=== PATIENT | female | born 1945 | race African-American/Black ===

== ENCOUNTER 2016-11-17 13:15 | Emergency (ER) | payer OTHER, MEDICARE ==
[2016-11-17 13:25] VITALS: BP 125/64
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
[2016-11-17] MEDS ORDERED: TRAMADOL HCL 50 MG TABLET PO ONE (14:37)
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
== END 2016-11-17 16:43 | disposition home or self-care (01) ==
LOC: ER 13:15
DX: S16.1XXA Strain of muscle, fascia and tendon at neck level, initial encounter (principal); S39.012A Strain of muscle, fascia and tendon of lower back, initial encounter; M54.9 Dorsalgia, unspecified; V87.7XXA Person injured in collision between other specified motor vehicles (traffic), initial encounter; M54.2 Cervicalgia; M54.5 Low back pain; M25.519 Pain in unspecified shoulder
CPT/HCPCS: 72110; 99283

== ENCOUNTER → 2017-06-16 | Outpatient (CLI) | payer MEDICARE, OTHER ==
--- NOTE | 2017-06-16 17:42 | WOMENS IMAGING REPORT ---
EXAM DESCRIPTION: 3D SCREENING MAMMO BILAT COMPLETED DATE/TIME: 06/16/2017 2:35 pm REASON FOR STUDY: SCREENING MAMMO Z12.31 ENCNTR SCREEN MAMMOGRAM FOR MALIGNANT NEOPLASM OF MIRIAM COMPARISON: Multiple since 2008 TECHNIQUE: Standard craniocaudal and mediolateral oblique views of each breast recorded using digita l acquisition and breast tomosynthesis. LIMITATIONS: None. FINDINGS: Findings present which are benign by mammographic criteria. No suspicious masses, calcifi cations or architectural distortion. Pertinent benign findings: Benign bilateral breast parenchymal calcifications. Read with the assistance of CAD. .[facility] - R2 Cenova Version 1.3 .[facility] - R2 Cenova Version 1.3 .[facility] - R2 Cenova Version 2.4 .[facility] [place] R2 Cenova Version 2.4 .[facility] - R2 [employer] Version 9.2 Benign mammographic findings may include one or more of the following: Smooth masses, popcorn/rim/co arse calcifications, asymmetries, post-procedure changes, and lesions with long-standing stability. IMPRESSION: BENIGN MAMMOGRAPHIC FINDINGS. BIRADS 2 BREAST DENSITY: b. There are scattered areas of fibroglandular density. BIRAD: 2 BENIGN FINDING(S) RECOMMENDATION: RECOMMENDATION: ROUTINE SCREENING Please continue yearly bilateral screening tomosynthesis in May 2018 COMMENT: The patient has been notified of the results by letter per SA requirements. Additional no tification policies are in place for contacting patient with suspicious or incomplete findings. Quality ID #[id number]: The [employer] recommends an annual screening mammogram for women aged 40 years or over. This facility utilizes a reminder system to ensure that all patients receive reminder letters, and/or direct phone calls for appointments. This includes reminders for routine scr eening mammograms, diagnostic mammograms, or other Breast Imaging Interventions when appropriate. Th is patient will be placed in the appropriate reminder system. The [employer] (ACR) has developed recommendations for screening MRI of the breast s in certain patient populations, to be used in conjunction with mammography. Breast MRI surveillanc e may be appropriate for women with more than 20% lifetime risk of developing breast cancer as deter mined by genetic testing, significant family history of the disease, or history of mantle radiation f or Hodgkins Disease. ACR Practice Guidelines 2008. DBT Technology DBT is a type of tomographic mammography. With conventional mammography, overlapping breast tissue ma y make lesions difficult to detect, even with good compression. DBT uses an x-ray tube that rotates a round the breast, taking images at different angles. These images are then combined to create thin sl ices of the breast that the radiologist can view as a 3D reconstruction. The [employer] unit can perform full-field digital mammograms (2D imaging); or DBT (3D imaging); or both, in a combination mode that quickly performs both the mammogram and the tomosynthesis scan while the breast is still compressed. PQRS 6045F: Fluoroscopic imaging is not utilized for breast tomosynthesis. TECHNICAL DOCUMENTATION: FINDING NUMBER: (1) ASSESSMENT: (1) JOB ID: [id number] [employer]- All Rights Reserved
== END ==
LOC: WI 14:16
PROVIDERS: ATTEND Obstetrics & Gynecology Gynecology
DX: Z12.31 Encounter for screening mammogram for malignant neoplasm of breast (principal)
CPT/HCPCS: 77063; G0202; 77067

== ENCOUNTER 2017-08-03 12:10 | Inpatient (IN) | payer MEDICARE, OTHER ==
[2017-08-03] MEDS ORDERED: INFLUENZA ADLT QUAD (36MOS+) 2017-18 VAC 0.5 ML SYR IM PRN (13:45)
[2017-08-03 14:40] LABS: ABSOLUTE BASOPHILS # (AUTO) 0.1 10^3/uL (0.0-0.2); ABSOLUTE EOSINOPHILS # (AUTO) 0.1 10^3/uL (0.0-0.6); ABSOLUTE LYMPHOCYTES (AUTO) 2.5 10^3/uL (0.5-4.7); ABSOLUTE MONOCYTES (AUTO) 0.5 10^3/uL (0.1-1.4); BASOPHILS % (AUTO) 1.3 % (0-2); EOSINOPHILS % (AUTO) 1.8 % (0-6); HEMATOCRIT 20.5 % (36.0-47.0); HGB HCT DIFFERENCE -1.3; LYMPHOCYTES % (AUTO) 48.8 % (13-45); MEAN CORPUSCULAR VOLUME 65 fl (80-97); MONOCYTES % (AUTO) 10.6 % (3-13); RED BLOOD COUNT 3.18 10^6/uL (3.72-5.28); RED CELL DISTRIBUTION WIDTH 18.1 % (11.5-14.0); SEGMENTED NEUTROPHILS % (AUTO) 37.5 % (42-78); WHITE BLOOD COUNT 5.2 10^3/uL (4.0-10.5)
[2017-08-03 14:51] LABS: ANION GAP 11 (5-19); BLOOD UREA NITROGEN 18 mg/dL (7-20); CALCIUM 9.5 mg/dL (8.4-10.2); CARBON DIOXIDE 25 mmol/L (22-30); CHLORIDE 107 mmol/L (98-107); CREATININE RESULT 0.95 mg/dL (0.52-1.25); GLUCOSE 76 mg/dL (75-110); POTASSIUM 4.5 mmol/L (3.6-5.0); SODIUM 143.4 mmol/L (137-145)
[2017-08-03 15:16] LABS: ANISOCYTOSIS 2+; HYPOCHROMASIA 2+; MICROCYTOSIS 3+; OVALOCYTES 2+; POIKILOCYTOSIS 3+; POLYCHROMASIA SLIGHT; SCHISTOCYTES 1+
--- NOTE | 2017-08-03 15:22 | PDOC H&P ---
History of Present Illness Admission Date/PCP: 08/03/17 12:10 JAD FLORES MD History of Present Illness: FLORENCE COON is a 71 year old female, she came to the office yesterday for evaluation of lightheadedness, fatigue, feeling of exhaustion, shortness of breath. She was evaluated in the office, blood was drawn for hemogram and metabolic panel. The results of the hemogram came back today it revealed hemoglobin of 5.6. She denies passage of black tarry stool, there is no vomiting, there is no hematochezia. She had a similar presentation last year, at that time she was admitted for blood transfusion and she underwent EGD and colonoscopy. The EGD showed gastritis and internal hemorrhoids. The histopathology of the stomach biopsy was consistent with chronic inactive gastritis, the histopathology of the colonic biopsy was consistent with nonspecific gastritis but no microscopic colitis no malignancy was found. She was called from home today to be admitted directly to the hospital for blood transfusion and also to be seen by GI for evaluation and possibly EGD and colonoscopy I suspect she may have angiodysplasia. Past Medical History Cardiac Medical History: Reports: Hypertension Pulmonary Medical History: Reports: Bronchitis Endocrine Medical History: Reports: Diabetes Mellitus Type 2, Hypothyroidism GI Medical History: Reports: Gastroesophageal Reflux Disease Psychiatric Medical History: Reports: Depression Hematology: Reports: Anemia Infectious Medical History: Denies: HIV Past Surgical History Past Surgical History: Reports: Appendectomy, Hysterectomy, Orthopedic Surgery, Tonsillectomy Social History Smoking Status: Never Smoker Frequency of Alcohol Use: Occasional Hx Recreational Drug Use: No Drugs: None Hx Prescription Drug Abuse: No Family History Family History: Reviewed & Not Pertinent Parental Family History Reviewed: Yes Children Family History Reviewed: Yes Sibling(s) Family History Reviewed.: Yes Medication/Allergy Home Medications: Clonidine HCl [Catapres 0.1 mg Tablet] 0.1 mg PO DAILY 06/27/12 Levothyroxine Sodium [Synthroid] 137 mcg PO DAILY 06/27/12 Verapamil HCl [Isoptin Sr] 240 mg PO DAILY 06/27/12 Hyoscyamine 0.125 mg PO BID 09/01/12 Aspirin [Aspirin EC] 81 mg PO DAILY PRN 01/25/16 Clonazepam [Klonopin] 1 mg PO PRN PRN 01/25/16 Ezetimibe [Zetia 10 mg Tablet] 1 tab PO DAILY 01/25/16 Linagliptin [Tradjenta] 5 mg PO DAILY 01/25/16 Rabeprazole Sodium [Aciphex] 20 mg PO DAILY 01/25/16 Valsartan/Hydrochlorothiazide [Diovan Hct 160-12.5 mg Tab] 1 each PO BID Cyclobenzaprine HCl [Flexeril 5 mg Tablet] 5 mg PO TID PRN #15 tablet 11/17/16 Tramadol HCl 50 mg PO Q4 PRN #20 tablet 11/17/16 Allergies/Adverse Reactions: clindamycin Allergy (Verified 11/17/16 13:32) Sulfa (Sulfonamide Antibiotics) Allergy (Verified 11/17/16 13:32) Review of Systems Constitutional: PRESENT: fatigue, weakness Eyes: ABSENT: visual disturbances Ears: ABSENT: hearing changes Cardiovascular: PRESENT: dyspnea on exertion Respiratory: ABSENT: cough, hemoptysis Gastrointestinal: ABSENT: abdominal pain, constipation, diarrhea, hematemesis, hematochezia, nausea, vomiting Genitourinary: ABSENT: dysuria, hematuria Musculoskeletal: ABSENT: joint swelling Integumentary: ABSENT: rash, wounds Neurological: ABSENT: abnormal gait, abnormal speech, confusion, dizziness, focal weakness, syncope Psychiatric: ABSENT: anxiety, depression, homidical ideation, suicidal ideation Endocrine: ABSENT: cold intolerance, heat intolerance, menstrual abnormalities, polydipsia, polyuria Hematologic/Lymphatic: ABSENT: easy bleeding, easy bruising, lymphadenopathy Physical Exam Vital Signs: Temp Pulse Resp BP Pulse Ox 98.3 F 67 20 129/63 H 99 08/03/17 12:55 08/03/17 12:55 08/03/17 12:55 08/03/17 12:55 08/03/17 12:55 Intake & Output 08/02/17 08/03/17 08/04/17 06:59 06:59 06:59 Weight 70.1 kg General appearance: PRESENT: no acute distress, well-developed, well-nourished Head exam: PRESENT: atraumatic, normocephalic Eye exam: PRESENT: conjunctiva pale, PERRLA Mouth exam: PRESENT: moist, tongue midline Neck exam: PRESENT: full ROM Respiratory exam: PRESENT: clear to auscultation carmelo Cardiovascular exam: PRESENT: RRR, +S1, +S2 Vascular exam: PRESENT: normal capillary refill GI/Abdominal exam: PRESENT: normal bowel sounds, soft Rectal exam: PRESENT: deferred Neurological exam: PRESENT: alert, awake, oriented to person, oriented to place , oriented to time, oriented to situation, CN II-XII grossly intact Psychiatric exam: PRESENT: appropriate affect, normal mood Skin exam: PRESENT: dry, intact, warm Results Laboratory Results: 08/03/17 14:10 Iron 12.1 L TIBC 468 H % Saturation 3 Assessment & Plan - Diagnosis (1) Iron deficiency anemia due to chronic blood loss Is this a current diagnosis for this admission?: Yes Plan: She is admitted for the management of severe iron deficiency anemia, she be transfused with packed red blood cells, GI consultation will be requested for endoscopy (2) Type 2 diabetes mellitus Qualifiers: Diabetes mellitus complication status: without complication Diabetes mellitus senior care insulin use: without oil heaterman use Qualified Code(s): E11.9 - Type 2 diabetes mellitus without complications Is this a current diagnosis for this admission?: Yes
[2017-08-03 15:32] LABS: FERRITIN 5.95 ng/mL (11.1-264.0)
[2017-08-03 15:36] LABS: HEMOGLOBIN 6.4 g/dL (12.0-15.5)
[2017-08-03 16:02] LABS: FOLATE > 20.00 ng/mL (>2.76)
--- NOTE | 2017-08-03 16:02 | RADIOLOGY REPORT (SQ) ---
EXAM DESCRIPTION: CHEST PA/LAT COMPLETED DATE/TIME: 08/03/2017 3:21 pm REASON FOR STUDY: SEVERE ANEMIA COMPARISON: 03/29/2015, 06/28/2012 EXAM PARAMETERS: NUMBER OF VIEWS: two views TECHNIQUE: Digital Frontal and Lateral radiographic views of the chest acquired. RADIATION DOSE: NA LIMITATIONS: none FINDINGS: LUNGS AND PLEURA: No opacities, masses or pneumothorax. No pleural effusion. MEDIASTINUM AND HILAR STRUCTURES: No masses or contour abnormalities. HEART AND VASCULAR STRUCTURES: Stable mild cardiomegaly. No evidence for failure. BONES: Osteopenic. No acute findings. HARDWARE: None in the chest. OTHER: No other significant finding. IMPRESSION: Mild cardiomegaly. Otherwise unremarkable study TECHNICAL DOCUMENTATION: JOB ID: [id number] [employer]- All Rights Reserved
--- NOTE | 2017-08-03 17:08 | PDOC CONSULTATION ---
Consultation Consult Date: 08/03/17 Attending physician:: WING NEUMANN Consult reason:: Severe anemia with symptoms. needs GI evaluation History of Present Illness Admission Date/PCP: 08/03/17 12:10 JAD FLORES MD History of Present Illness: Asked to see patient by Dr Carreonoh was admitted with profuund anemia of unclear etiology patient states had been feeling more fatigued than usual and had several close syncopal episodes patient state no rectal bleeding no nausea or vomiting no dysphagia or odynophagia patient says no melena denies any weight loss no family history of any colon malignancy admitted for start of work up and blood transfusion spoke with patient she seems willing to proceed she will need colonoscopy and EGD she denies any profuse vaginal bleeding or hematuria Past Medical History Cardiac Medical History: Reports: Hypertension Pulmonary Medical History: Reports: Bronchitis Endocrine Medical History: Reports: Diabetes Mellitus Type 2, Hypothyroidism GI Medical History: Reports: Gastroesophageal Reflux Disease Psychiatric Medical History: Reports: Depression Denies: Bipolar Disorder, Post Traumatic Stress Disorder Hematology: Reports: Anemia Denies: Hemophilia, Sickle Cell Disease Infectious Medical History: Denies: HIV Past Surgical History Past Surgical History: Reports: Appendectomy, Hysterectomy, Orthopedic Surgery, Tonsillectomy Denies: Amputation, Section, Cholecystectomy, Colostomy, Coronary Artery Bypass Graft, Gastric Bypass Surgery, Herniorrhaphy, Mastectomy, Pacemaker, Tubal Ligation Social History Smoking Status: Never Smoker Frequency of Alcohol Use: Occasional Hx Recreational Drug Use: No Drugs: None Hx Prescription Drug Abuse: No Family History Family History: Reviewed & Not Pertinent Parental Family History Reviewed: Yes Children Family History Reviewed: Unknown Sibling(s) Family History Reviewed.: Unknown Medication/Allergy Home Medications: Aspirin [Aspirin EC] 81 mg PO DAILY 08/03/17 Clonazepam [Klonopin 1 mg Tablet] 1 mg PO DAILY 08/03/17 Clonidine HCl [Catapres 0.1 mg Tablet] 0.1 mg PO DAILY 08/03/17 Levothyroxine Sodium [Synthroid] 137 mcg PO DAILY 08/03/17 Linagliptin [Tradjenta] 5 mg PO DAILY 08/03/17 Rabeprazole Sodium [Aciphex] 20 mg PO DAILY 08/03/17 Valsartan/Hydrochlorothiazide [Valsartan-Hctz 160-12.5 mg Tab] 1 tab PO DAILY Verapamil HCl [Verapamil ER] 240 mg PO DAILY 08/03/17 Allergies/Adverse Reactions: clindamycin Allergy (Verified 11/17/16 13:32) Sulfa (Sulfonamide Antibiotics) Allergy (Verified 11/17/16 13:32) Review of Systems Constitutional: PRESENT: weakness. ABSENT: fever(s), headache(s), night sweats Eyes: ABSENT: visual disturbances Nose, Mouth, and Throat: ABSENT: mouth pain, sore throat Cardiovascular: ABSENT: chest pain, edema, orthropnea, palpitations Respiratory: ABSENT: dyspnea, hemoptysis Gastrointestinal: ABSENT: diarrhea, dysphagia, melena, nausea, vomiting Genitourinary: ABSENT: dysuria Musculoskeletal: ABSENT: muscle weakness Integumentary: ABSENT: lesions, pruritus Neurological: ABSENT: syncope, tingling, tremor(s), vertigo Endocrine: ABSENT: polydipsia, polyphagia, polyuria Hematologic/Lymphatic: ABSENT: easy bruising Physical Exam Vital Signs: Temp Pulse Resp BP Pulse Ox 98.3 F 69 20 129/63 H 99 08/03/17 12:55 08/03/17 13:36 08/03/17 12:55 08/03/17 12:55 08/03/17 12:55 Intake & Output 08/02/17 08/03/17 08/04/17 06:59 06:59 06:59 Weight 70.1 kg General appearance: PRESENT: no acute distress, well-developed, well-nourished Head exam: PRESENT: atraumatic, normocephalic Eye exam: PRESENT: EOMI, PERRLA. ABSENT: nystagmus, periorbital swelling, scleral icterus Mouth exam: PRESENT: moist, neck supple Throat exam: ABSENT: tonsillar exudate, tonsillogmegaly Neck exam: ABSENT: meningismus, tenderness, thyromegaly Respiratory exam: PRESENT: symmetrical, unlabored. ABSENT: tachypnea, wheezes Cardiovascular exam: PRESENT: RRR, +S1, +S2 GI/Abdominal exam: PRESENT: soft. ABSENT: rebound, rigid, tenderness Extremities exam: ABSENT: joint swelling Musculoskeletal exam: PRESENT: full ROM Neurological exam: PRESENT: oriented to time, oriented to situation, CN II-XII grossly intact Psychiatric exam: PRESENT: appropriate affect Skin exam: PRESENT: normal color. ABSENT: mottled, pallor, petechiae, urticaria , vesicles Results Laboratory Results: 08/03/17 14:10 08/03/17 14:10 08/03/17 08/03/17 08/03/17 14:10 14:10 14:10 WBC 5.2 RBC 3.18 L Hgb 6.4 L Hct 20.5 L MCV 65 L MCH 20.0 L MCHC 31.0 L RDW 18.1 H Plt Count 320 Seg Neutrophils % 37.5 L Lymphocytes % 48.8 H Monocytes % 10.6 Eosinophils % 1.8 Basophils % 1.3 Absolute Neutrophils 2.0 Absolute Lymphocytes 2.5 Absolute Monocytes 0.5 Absolute Eosinophils 0.1 Absolute Basophils 0.1 Sodium Potassium Chloride Carbon Dioxide Anion Gap BUN Creatinine Est GFR ( Amer) Est GFR (Non-Af Amer) Glucose Calcium Iron 12.1 L TIBC 468 H % Saturation 3 Ferritin Vitamin B12 Folate Blood Type O POSITIVE Antibody Screen NEGATIVE 08/03/17 14:10 WBC RBC Hgb Hct MCV MCH MCHC RDW Plt Count Seg Neutrophils % Lymphocytes % Monocytes % Eosinophils % Basophils % Absolute Neutrophils Absolute Lymphocytes Absolute Monocytes Absolute Eosinophils Absolute Basophils Sodium 143.4 Potassium 4.5 Chloride 107 Carbon Dioxide 25 Anion Gap 11 BUN 18 Creatinine 0.95 Est GFR ( Amer) > 60 Est GFR (Non-Af Amer) 58 L Glucose 76 Calcium 9.5 Iron TIBC % Saturation Ferritin 5.95 L Vitamin B12 291.0 Folate > 20.00 Blood Type Antibody Screen Impressions: Chest X-Ray 08/03/17 00:00 IMPRESSION: Mild cardiomegaly. Otherwise unremarkable study Assessment & Plan - Diagnosis (1) GERD (gastroesophageal reflux disease) Plan: will need to have EGD done rule out for possible peptic ulcer disease Risks, benefits and alternatives are discussed with the patient in detail further recommendations to follow (2) Iron deficiency anemia due to chronic blood loss Is this a current diagnosis for this admission?: Yes Plan: will need to exclude possible blood loss she is willing to proceed with the GI work up as planned Risks, benefit and alternatives are discussed further recommendations to follow - Time Time Spent: 50 to 70 Minutes
[2017-08-03] MEDS ORDERED: PEG 3350/NA SULF,BICARB,CL/KCL 4000 ML PO PRN (18:01)
[2017-08-03] MEDS ORDERED: (PENDING PHARMACY ID) (Valsartan/Hydrochlorothiazide [Valsartan-Hctz 160-12.5 Mg Tab] 1 TA PO SCH (20:45)
[2017-08-03] MEDS ORDERED: (PENDING PHARMACY ID) (Linagliptin [Tradjenta] 5 MG) PO SCH (20:45)
[2017-08-03] MEDS ORDERED: (PENDING PHARMACY ID) (Rabeprazole Sodium [Aciphex] 20 MG) PO SCH (20:45)
[2017-08-03] MEDS ORDERED: (PENDING PHARMACY ID) (Levothyroxine Sodium [Synthroid] 137 MCG) PO SCH (20:45)
[2017-08-03] MEDS ORDERED: CLONIDINE HCL 0.1 MG TABLET PO ONE (21:00)
[2017-08-03] MEDS: CLONAZEPAM 1 MG TABLET PO SCH (21:13)
[2017-08-03] MEDS: VERAPAMIL HCL 240 MG TABLET.SA PO SCH (21:19)
[2017-08-04 08:29] LABS: ABSOLUTE BASOPHILS # (AUTO) 0.1 10^3/uL (0.0-0.2); ABSOLUTE EOSINOPHILS # (AUTO) 0.2 10^3/uL (0.0-0.6); ABSOLUTE MONOCYTES (AUTO) 0.9 10^3/uL (0.1-1.4); ABSOLUTE NEUT (AUTO) 1.9 10^3/uL (1.7-8.2); BASOPHILS % (AUTO) 1.5 % (0-2); EOSINOPHILS % (AUTO) 4.3 % (0-6); HEMATOCRIT 34.5 % (36.0-47.0); HGB HCT DIFFERENCE -0.9; LYMPHOCYTES % (AUTO) 38.9 % (13-45); MEAN CORPUSCULAR HEMOGLOBIN 23.7 pg (27.0-33.4); MEAN CORPUSCULAR HGB CONC 32.4 g/dL (32.0-36.0); MONOCYTES % (AUTO) 17.6 % (3-13); RED BLOOD COUNT 4.71 10^6/uL (3.72-5.28); SEGMENTED NEUTROPHILS % (AUTO) 37.7 % (42-78); WHITE BLOOD COUNT 5.1 10^3/uL (4.0-10.5)
[2017-08-04 08:33] LABS: HEMOGLOBIN 11.2 g/dL (12.0-15.5); MEAN CORPUSCULAR VOLUME 73 fl (80-97)
[2017-08-04 08:39] LABS: ALANINE AMINOTRANSFERASE 32 U/L (9-52); ALKALINE PHOSPHATASE 78 U/L (38-126); ANION GAP 13 (5-19); ASPARTATE AMINO TRANSFERASE 46 U/L (14-36); BILIRUBIN,DIRECT 0.4 mg/dL (0.0-0.4); BILIRUBIN,TOTAL 0.8 mg/dL (0.2-1.3); BLOOD UREA NITROGEN 11 mg/dL (7-20); CALCIUM 9.4 mg/dL (8.4-10.2); CARBON DIOXIDE 24 mmol/L (22-30); CHLORIDE 109 mmol/L (98-107); CREATININE RESULT 0.83 mg/dL (0.52-1.25); GLUCOSE 84 mg/dL (75-110); POTASSIUM 4.5 mmol/L (3.6-5.0); SODIUM 145.8 mmol/L (137-145)
[2017-08-04 09:05] LABS: ANISOCYTOSIS 4+; HYPOCHROMASIA SLIGHT; MICROCYTOSIS 2+; OVALOCYTES 1+; POIKILOCYTOSIS 1+; POLYCHROMASIA SLIGHT
[2017-08-04] MEDS ORDERED: DIPHENHYDRAMINE HCL 50 MG/ML VIAL ONE (09:19)
[2017-08-04] MEDS ORDERED: ONDANSETRON HCL INJ/PF 4 MG/2 ML SDV ONE (09:19)
[2017-08-04] MEDS ORDERED: NALOXONE HCL INJ/PF 0.4 MG/1 ML SDV ONE (09:19)
[2017-08-04] MEDS ORDERED: FLUMAZENIL INJ 0.5 MG/5 ML VIAL ONE (09:20)
[2017-08-04] MEDS ORDERED: EPINEPHRINE INJ 1 MG/10 ML DISP.SYRIN ONE (09:20)
[2017-08-04] MEDS ORDERED: FENTANYL CITRATE INJ/PF 100 MCG/2 ML AMPUL ONE (09:20)
[2017-08-04] MEDS ORDERED: GLUCAGON,HUMAN RECOMB 1 MG INJ ONE (09:21)
[2017-08-04] MEDS ORDERED: LANSOPRAZOLE 30 MG TAB.RAP.DR PO SCH (10:00)
[2017-08-04] MEDS: MIDAZOLAM 2 MG/2 ML INJ ONE ×4 (11:18→11:34)
[2017-08-04] MEDS: FENTANYL CITRATE INJ/PF 100 MCG/2 ML AMPUL ONE ×3 (11:20→11:32)
--- NOTE | 2017-08-04 11:51 | Operative Report ---
Operative Report DATE OF SURGERY: 08/04/17 Operative Report: The risks, benefits and alternatives of the procedure including risks of bleeding, perforation requiring surgery are explained to the patient in detail and informed consent is obtained. The patient is brought back to the endoscopy suite and placed in the left, lateral decubital position. Timeout was called. Conscious sedation medications are provided. A rectal examination is done which did not reveal any masses, tears or fissures. An Olympus videoscope was inserted into the patient's rectum. The scope was then carefully advanced all the way to the cecum. Cecum was identified by the usual anatomical landmarks including the ileocecal valve as well as the appendiceal office. Photodocumentation is obtained. The scope was then sequentially pulled back via the various segments of the colon including the ascending colon, hepatic flexure, transverse colon, splenic flexure, descending colon finding to the rectosigmoid portions of the colon. Retroflexion maneuvers performed. The risks benefits and alternatives of the procedure explained to the patient in detail and informed consent is obtained.A GIF Olympus video scope was inserted into the patient's mouth and hypopharynx, the esophagus is identified intubated and insufflated, the scope was then advanced through the esophagus stomach and duodenum, retroflexion maneuver is done ,the esophagus stomach and first and second portions of the duodenum examined PREOPERATIVE DIAGNOSIS: Chronic anemia rule out GI bleed POSTOPERATIVE DIAGNOSIS: Right side mild inflammation status post biopsy noted in the right side of the colon. Gastritis status post biopsy rule out Helicobacter pylori. No bleeding lesions noted OPERATION: Colonoscopy with biopsy. EGD with biopsy SURGEON: WING NEUMANN ANESTHESIA: Moderate Sedation - 25 mg of Benadryl, 6 mg of Versed, 125 mcg of fentanyl. Conscious sedation monitoring time 30 minutes. TISSUE REMOVED OR ALTERED: As noted above. COMPLICATIONS: None. ESTIMATED BLOOD LOSS: None. INTRAOPERATIVE FINDINGS: As noted above. PROCEDURE: Patient tolerated procedure well. No immediate postprocedure complications are noted. Patient sent back to her room in good condition. Resume regular diet. Resume regular activity level. We will wait on pathology. No obvious bleeding is noted. Patient can be discharged after no other issues. Follow-up as outpatient.
[2017-08-04] MEDS: LEVOTHYROXINE SODIUM 0.025 MG TABLET PO SCH (12:25)
[2017-08-04] MEDS: LEVOTHYROXINE SODIUM 0.112 MG TABLET PO SCH (12:25)
[2017-08-04] MEDS ORDERED: IRON SUCROSE COMPLEX INJ/PF 100 MG/5 ML SDV IV ONE (12:53)
[2017-08-04] MEDS: SITAGLIPTIN PHOSPHATE 50 MG TABLET PO SCH (14:13)
[2017-08-04] MEDS: VALSARTAN 160 MG TABLET PO SCH (14:13)
[2017-08-04] MEDS: HYDROCHLOROTHIAZIDE 12.5 MG CAPSULE PO SCH (14:14)
[2017-08-04] MEDS: CLONIDINE HCL 0.1 MG TABLET PO SCH (14:14)
[2017-08-04] MEDS ORDERED: IRON SUCROSE COMPLEX 100 MG in NORMAL SALINE 100 ML IV ONE (14:30)
--- NOTE | 2017-08-04 18:22 | PDOC DISCHARGE SUMMARY ---
General - Admit/Disc Date/PCP Admission Date/Primary Care Provider: 08/03/17 12:10 JAD FLORES MD Discharge Date: 08/05/17 - Discharge Diagnosis (1) Acquired iron deficiency anemia due to decreased absorption Is this a current diagnosis for this admission?: Yes (2) Type 2 diabetes mellitus Is this a current diagnosis for this admission?: Yes - Additional Information Resuscitation Status: Full Code Home Medications: Aspirin [Aspirin EC] 81 mg PO DAILY 08/03/17 Clonazepam [Klonopin 1 mg Tablet] 1 mg PO DAILYP PRN 08/03/17 Clonidine HCl [Catapres 0.1 mg Tablet] 0.1 mg PO QHS 08/03/17 Levothyroxine Sodium [Synthroid] 137 mcg PO Q6AM 08/03/17 Linagliptin [Tradjenta] 5 mg PO DAILY 08/03/17 Rabeprazole Sodium [Aciphex] 20 mg PO Q6AM 08/03/17 Valsartan/Hydrochlorothiazide [Valsartan-Hctz 160-12.5 mg Tab] 1 tab PO DAILY@ 1600 08/03/17 Verapamil HCl [Verapamil ER] 240 mg PO DAILY 08/03/17 History of Present Illness History of Present Illness: FLORENCE COON is a 71 year old female, she came to the office yesterday for evaluation of lightheadedness, fatigue, feeling of exhaustion, shortness of breath. She was evaluated in the office, blood was drawn for hemogram and metabolic panel. The results of the hemogram came back today it revealed hemoglobin of 5.6. She denies passage of black tarry stool, there is no vomiting, there is no hematochezia. She had a similar presentation last year, at that time she was admitted for blood transfusion and she underwent EGD and colonoscopy. The EGD showed gastritis and internal hemorrhoids. The histopathology of the stomach biopsy was consistent with chronic inactive gastritis, the histopathology of the colonic biopsy was consistent with nonspecific gastritis but no microscopic colitis no malignancy was found. She was called from home today to be admitted directly to the hospital for blood transfusion and also to be seen by GI for evaluation and possibly EGD and colonoscopy I suspect she may have angiodysplasia. Hospital Course Hospital Course: Patient was admitted for the management of severe iron deficiency anemia, she was transfused with packed red blood cells, on admission the hemoglobin was 6.4 posttransfusion hemoglobin was 11.4 she was seen by GI Dr. Alvarenga she underwent EGD and colonoscopy, the colonoscopy showed right-sided mild inflammation biopsy was taken, the upper endoscopy showed gastritis there was no active bleeding lesions found. She has similar presentation last year suggesting that the iron deficiency is probably due to malabsorption of iron rather than iron loss from GI bleed she was also given IV Venofer. Physical Exam Vital Signs: Temp Pulse Resp BP Pulse Ox 97.7 F 62 16 159/73 H 97 08/04/17 16:02 08/04/17 16:02 08/04/17 16:02 08/04/17 16:02 08/04/17 16:02 Intake & Output 08/03/17 08/04/17 08/05/17 06:59 06:59 06:59 Intake Total 2795 656 Output Total 600 Balance 2195 656 Weight 70.1 kg General appearance: PRESENT: no acute distress, well-developed, well-nourished Head exam: PRESENT: atraumatic, normocephalic Eye exam: PRESENT: conjunctiva pink, EOMI, PERRLA Ear exam: PRESENT: normal external ear exam Mouth exam: PRESENT: moist, tongue midline Neck exam: PRESENT: full ROM Respiratory exam: PRESENT: clear to auscultation carmelo Cardiovascular exam: PRESENT: RRR, +S1, +S2 Pulses: PRESENT: normal dorsalis pedis pul, +2 pedal pulses bilateral Vascular exam: PRESENT: normal capillary refill GI/Abdominal exam: PRESENT: normal bowel sounds, soft Rectal exam: PRESENT: deferred Neurological exam: PRESENT: alert, awake, oriented to person, oriented to place , oriented to time, oriented to situation, CN II-XII grossly intact. ABSENT: motor sensory deficit Psychiatric exam: PRESENT: appropriate affect, normal mood Skin exam: PRESENT: dry, intact, warm Results Laboratory Results: 08/04/17 07:54 08/04/17 07:54 08/03/17 08/03/17 08/04/17 14:10 22:40 07:54 WBC 5.1 RBC 4.71 Hgb 11.2 L D Hct 34.5 L MCV 73 L D MCH 23.7 L MCHC 32.4 RDW 25.0 H Plt Count 279 Seg Neutrophils % 37.7 L Lymphocytes % 38.9 Monocytes % 17.6 H Eosinophils % 4.3 Basophils % 1.5 Absolute Neutrophils 1.9 Absolute Lymphocytes 2.0 Absolute Monocytes 0.9 Absolute Eosinophils 0.2 Absolute Basophils 0.1 Sodium Potassium Chloride Carbon Dioxide Anion Gap BUN Creatinine Est GFR ( Amer) Est GFR (Non-Af Amer) Glucose Calcium Total Bilirubin AST ALT Alkaline Phosphatase Total Protein Albumin Stool Occult Blood NEGATIVE Blood Type O POSITIVE Antibody Screen NEGATIVE 08/04/17 07:54 WBC RBC Hgb Hct MCV MCH MCHC RDW Plt Count Seg Neutrophils % Lymphocytes % Monocytes % Eosinophils % Basophils % Absolute Neutrophils Absolute Lymphocytes Absolute Monocytes Absolute Eosinophils Absolute Basophils Sodium 145.8 H Potassium 4.5 Chloride 109 H Carbon Dioxide 24 Anion Gap 13 BUN 11 Creatinine 0.83 Est GFR ( Amer) > 60 Est GFR (Non-Af Amer) > 60 Glucose 84 Calcium 9.4 Total Bilirubin 0.8 AST 46 H ALT 32 Alkaline Phosphatase 78 Total Protein 7.0 Albumin 4.0 Stool Occult Blood Blood Type Antibody Screen Impressions: Chest X-Ray 08/03/17 00:00 IMPRESSION: Mild cardiomegaly. Otherwise unremarkable study
--- NOTE | 2017-08-04 18:23 | PDOC PROGRESS REPORT ---
Subjective Progress Note for:: 08/04/17 Subjective:: She was seen by the bedside she had colonoscopy and upper endoscopy done today, there was no active bleeding lesion found on colonoscopy and upper endoscopy. She was given IV Venofer as well Physical Exam Vital Signs: Temp Pulse Resp BP Pulse Ox 97.7 F 62 16 159/73 H 97 08/04/17 16:02 08/04/17 16:02 08/04/17 16:02 08/04/17 16:02 08/04/17 16:02 Intake & Output 08/03/17 08/04/17 08/05/17 06:59 06:59 06:59 Intake Total 2795 656 Output Total 600 Balance 2195 656 Weight 70.1 kg General appearance: PRESENT: no acute distress, well-developed, well-nourished Head exam: PRESENT: atraumatic, normocephalic Eye exam: PRESENT: conjunctiva pink, EOMI, PERRLA. ABSENT: scleral icterus Ear exam: PRESENT: normal external ear exam Mouth exam: PRESENT: moist, tongue midline Neck exam: PRESENT: full ROM Respiratory exam: PRESENT: clear to auscultation carmelo Cardiovascular exam: PRESENT: RRR, +S1 Pulses: PRESENT: normal dorsalis pedis pul, +2 pedal pulses bilateral Vascular exam: PRESENT: normal capillary refill GI/Abdominal exam: PRESENT: normal bowel sounds, soft Rectal exam: PRESENT: deferred Neurological exam: PRESENT: alert, awake, oriented to person, oriented to place , oriented to time, oriented to situation, CN II-XII grossly intact. ABSENT: motor sensory deficit Psychiatric exam: PRESENT: appropriate affect, normal mood Skin exam: PRESENT: dry, intact, warm. ABSENT: cyanosis, rash Results Laboratory Results: 08/04/17 07:54 08/04/17 07:54 08/03/17 08/03/17 08/04/17 14:10 22:40 07:54 WBC 5.1 RBC 4.71 Hgb 11.2 L D Hct 34.5 L MCV 73 L D MCH 23.7 L MCHC 32.4 RDW 25.0 H Plt Count 279 Seg Neutrophils % 37.7 L Lymphocytes % 38.9 Monocytes % 17.6 H Eosinophils % 4.3 Basophils % 1.5 Absolute Neutrophils 1.9 Absolute Lymphocytes 2.0 Absolute Monocytes 0.9 Absolute Eosinophils 0.2 Absolute Basophils 0.1 Sodium Potassium Chloride Carbon Dioxide Anion Gap BUN Creatinine Est GFR ( Amer) Est GFR (Non-Af Amer) Glucose Calcium Total Bilirubin AST ALT Alkaline Phosphatase Total Protein Albumin Stool Occult Blood NEGATIVE Blood Type O POSITIVE Antibody Screen NEGATIVE 08/04/17 07:54 WBC RBC Hgb Hct MCV MCH MCHC RDW Plt Count Seg Neutrophils % Lymphocytes % Monocytes % Eosinophils % Basophils % Absolute Neutrophils Absolute Lymphocytes Absolute Monocytes Absolute Eosinophils Absolute Basophils Sodium 145.8 H Potassium 4.5 Chloride 109 H Carbon Dioxide 24 Anion Gap 13 BUN 11 Creatinine 0.83 Est GFR ( Amer) > 60 Est GFR (Non-Af Amer) > 60 Glucose 84 Calcium 9.4 Total Bilirubin 0.8 AST 46 H ALT 32 Alkaline Phosphatase 78 Total Protein 7.0 Albumin 4.0 Stool Occult Blood Blood Type Antibody Screen Impressions: Chest X-Ray 08/03/17 00:00 IMPRESSION: Mild cardiomegaly. 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
[2017-08-04] MEDS: VERAPAMIL HCL 240 MG TABLET.SA PO SCH (21:02)
[2017-08-04] MEDS: CLONAZEPAM 1 MG TABLET PO SCH (21:02)
[2017-08-05] MEDS ORDERED: LANSOPRAZOLE 30 MG TAB.RAP.DR PO SCH (06:00)
[2017-08-05] MEDS: LEVOTHYROXINE SODIUM 0.025 MG TABLET PO SCH (10:20)
[2017-08-05] MEDS: LEVOTHYROXINE SODIUM 0.112 MG TABLET PO SCH (10:23)
[2017-08-05] MEDS: HYDROCHLOROTHIAZIDE 12.5 MG CAPSULE PO SCH (10:23)
[2017-08-05] MEDS: SITAGLIPTIN PHOSPHATE 50 MG TABLET PO SCH (10:23)
[2017-08-05] MEDS: CLONIDINE HCL 0.1 MG TABLET PO SCH (10:23)
[2017-08-05] MEDS: VALSARTAN 160 MG TABLET PO SCH (10:24)
--- NOTE | 2017-08-05 12:07 | PDOC PROGRESS REPORT ---
Subjective Progress Note for:: 08/05/17 Subjective:: Patient tolerated procedure well. In future she is probably not a candidate for conscious sedation and will need propofol anesthesia. Biopsies are returned, they are negative. No evidence of GI bleeding is noted. No colon polyps were noted. She does have chronic anemia. Further workup should continue with hematology. She resume her previous diet. No postprocedure complications are noted She denies any abdominal pain fevers or chills. Physical Exam Vital Signs: Temp Pulse Resp BP Pulse Ox 97.9 F 56 L 16 145/54 H 95 08/04/17 23:40 08/05/17 07:00 08/04/17 23:40 08/04/17 23:40 08/04/17 23:40 Intake & Output 08/04/17 08/05/17 08/06/17 06:59 06:59 06:59 Intake Total 2795 1976 Output Total 600 550 Balance 2195 1426 Weight 70.1 kg General appearance: PRESENT: no acute distress, well-developed, well-nourished Head exam: PRESENT: atraumatic, normocephalic Eye exam: PRESENT: EOMI, PERRLA. ABSENT: nystagmus, periorbital swelling, scleral icterus Mouth exam: PRESENT: moist, neck supple Throat exam: ABSENT: tonsillar exudate, tonsillogmegaly Neck exam: ABSENT: meningismus, tenderness, thyromegaly Respiratory exam: PRESENT: symmetrical, unlabored. ABSENT: tachypnea, wheezes Cardiovascular exam: PRESENT: RRR, +S1, +S2 GI/Abdominal exam: PRESENT: soft. ABSENT: rebound, rigid, tenderness Musculoskeletal exam: PRESENT: full ROM Neurological exam: PRESENT: oriented to situation, reflexes normal, CN II-XII grossly intact Skin exam: PRESENT: normal color. ABSENT: mottled, pallor, petechiae, urticaria , vesicles Results Laboratory Results: 08/04/17 07:54 08/04/17 07:54 Impressions: Chest X-Ray 08/03/17 00:00 IMPRESSION: Mild cardiomegaly. Otherwise unremarkable study Assessment & Plan - Diagnosis (1) GERD (gastroesophageal reflux disease) Plan: Continue PPI as outpatient. Biopsies are negative for Helicobacter pylori. (2) Iron deficiency anemia due to chronic blood loss Is this a current diagnosis for this admission?: Yes Plan: No evidence of GI bleeding noted. Continue to follow her indices.\ Can likely be discharged and asked any other issues.
[2017-08-05 12:53] VITALS: BP 146/76
== END 2017-08-05 13:32 | disposition home or self-care (01) | DRG 812 ==
LOC: 4S 12:10
PROVIDERS: ADMIT Internal Medicine; ATTEND Internal Medicine
PROC: 30233N1 Transfusion of Nonautologous Red Blood Cells into Peripheral Vein, Percutaneous Approach (ICD-10-PCS; principal; 2017-08-03)
PROC: 0DDK8ZX Extraction of Ascending Colon, Via Natural or Artificial Opening Endoscopic, Diagnostic (ICD-10-PCS; 2017-08-04)
PROC: 0DD68ZX Extraction of Stomach, Via Natural or Artificial Opening Endoscopic, Diagnostic (ICD-10-PCS; 2017-08-04 11:00)
PROC: 3E0234Z Introduction of Serum, Toxoid and Vaccine into Muscle, Percutaneous Approach (ICD-10-PCS; 2017-08-05)
DX: D50.8 Other iron deficiency anemias (principal); K21.9 Gastro-esophageal reflux disease without esophagitis; K29.50 Unspecified chronic gastritis without bleeding; K29.60 Other gastritis without bleeding; I10 Essential (primary) hypertension; E11.9 Type 2 diabetes mellitus without complications; E03.9 Hypothyroidism, unspecified; F32.9 Major depressive disorder, single episode, unspecified; Z23 Encounter for immunization; Z79.82 Long term (current) use of aspirin; Z79.899 Other long term (current) drug therapy
CPT/HCPCS: 36415; 36430; 43239; 45380; 71020; 80048; 80053; 82272; 82607; 82728; 82746; 82962; 83540; 83550; 85025; 86850; 86900; 86901; 86920; 88305; 90686; J0171; J1200; J1610; J1756; J2250; J2310; J2405; J3010; J3490; P9016

== ENCOUNTER → 2017-10-27 | Outpatient (CLI) | payer MEDICARE, OTHER ==
--- NOTE | 2017-10-27 14:57 | DRAGON STRESS TEST REPORT ---
EXERCISE TREADMILL CARDIOLITE STRESS TEST USING SINGLE PHOTON EMMISION COMPUTERIZED TOMOGRAPHIC. DATE OF PROCEDURE: October 27, 2017 INDICATION : Abnormal EKG CARDIAC RISK FACTORS: Diabetes and hypertension RESTING EKG: Sinus rhythm, LVH with some secondary ST-T wave changes. STRESS EKG: No significant changes noted with exercise. REASON FOR TERMINATION: Dyspnea and fatigue. Patient denied any chest pain. PROCEDURE REPORT: Baseline heart rate 68 beats per minute with blood pressure of 139/76. Patient had no significant complaints. Patient exercised on standard Huber protocol for a total of 6 minutes and 59 seconds. Heart rate at peak exercise 123, which is 82% of predicted maximum, with a blood pressure at peak exercise 198/53. No significant additional ST segment changes were noted. Occasional ventricular ectopy and one ventricular couplet noted. Patient had no significant complaints or complications during the procedure or postprocedure. CONCLUSIONS: Negative for significant EKG changes with exercise at achieved heart rate and blood pressure response. Exercise tolerance is felt to be average. Clinical correlation and correlation with nuclear images is recommended. NUCLEAR DATA: At rest the patient was given 10.32 millicuries of technetium 99 sestamibi injected intravenously. As per protocol rest gated SPECT images were obtained. Subsequently the patient was injected with 30.0 millicuries of technetium 99 sestamibi compound at peak exercise, followed by flush with normal saline. Patient continued to exercise for additional 1-2 minutes. As per protocol stress gated images were obtained. NUCLEAR INTERPRETATION: Both raw and processed data were used for interpretation. Visual, qualitative, computer-generated quantitative data was used. There was good myocardial uptake of technetium compound. Motion artifact and soft tissue attenuations were noted. Increased visceral uptake was noted. No definitive areas of transient perfusion defect noted. No definitive areas of fixed perfusion defect or scars noted. EKG gated imaging showed LV EF at 65 %, rest and stress gated EF similar visually. T. I D. ratio was 1.13. Lung heart ratio noted to be within normal limits 0.25. No significant extracardiac and abnormal radiotracer activities were noted. RV free wall uptake was noted to be WNL. IMPRESSION: Also refer to comments under nuclear interpretation. Also test results needs to be interpreted in the context of pretest probability. 1. There is no definitive scintigraphic evidence of exercise induced myocardial ischemia at achieved heart rate and blood pressure response. Heart rate response suboptimal, BP response adequate, double product adequate 2. There is no definitive scintigraphic evidence of myocardial infarction/scar. 3. EKG gated imaging shows left ejection fraction of approximately 65 %. 4. Exercise tolerance is noted to be good for the patient's age RECOMMENDATIONS: Aggressive risk factor modification, medical therapy. Clinical correlation with echocardiogram derived ejection fraction. Consider cardiology consultation if clinically indicated. I AM AVAILABLE FOR CARDIOLOGY CONSULTATION AND FOLLOWUP IF REQUESTED BY PMD Cindi Wilkins M.D., NO Center Rep rn access, Board certified in cardiovascular diseases, Nuclear cardiology, Echocardiography Cardiac CT and cardiac MRI Ph. [phone] [facility]
== END ==
LOC: RAD 07:11
PROVIDERS: ATTEND Internal Medicine
DX: R07.9 Chest pain, unspecified (principal); I10 Essential (primary) hypertension; E11.9 Type 2 diabetes mellitus without complications; R06.00 Dyspnea, unspecified; R53.83 Other fatigue
CPT/HCPCS: 93017; 78452; A9500; Q9969

== ENCOUNTER → 2017-12-14 | Outpatient (CLI) | payer MEDICARE, OTHER ==
--- NOTE | 2017-12-14 12:05 | RADIOLOGY REPORT (SQ) ---
EXAM DESCRIPTION: CT ABD/PELVIS ORAL ONLY COMPLETED DATE/TIME: 12/14/2017 10:36 am REASON FOR STUDY: IRON DEFICIENCY (D50.0), ULCER OF INTESTINE (K63.3), FOREIGN BODY (T18.8XXA K63.3 ULCER OF INTESTINE D50.0 IRON DEFICIENCY ANEMIA SECONDARY TO BLOOD LOSS (CHRONI T18.8XXA FOREIGN B DEJUAN IN OTHER PARTS OF ALIMENTARY TRACT, IN COMPARISON: CT ABDOMEN PELVIS 09/01/2012 TECHNIQUE: CT scan of the abdomen and pelvis performed without intravenous or oral contrast. Images reviewed with lung, soft tissue, and bone windows. Reconstructed coronal and sagittal MPR images revi ewed. All images stored on PACS. All CT scanners at this facility use dose modulation, iterative reconstruction, and/or weight based d osing when appropriate to reduce radiation dose to as low as reasonably achievable (ALARA). [facility]: Dose Right [facility]: CareDose [facility]: Dose Right [facility]: Teradose 4D [facility]: [employer] RADIATION DOSE: CT Rad equipment meets quality standard of care and radiation dose reduction techniq ues were employed. CTDIvol: 5.4 mGy. DLP: 280 mGy-cm.mGy. LIMITATIONS: None. FINDINGS: This study was initially scheduled as a CT enterography of the abdomen and pelvis. Patien t drank the negative contrast for enterography. We were unable to obtain IV access for the IV contra st injection. The patient has a row of anastomotic karthik along the distal 5 cm of ileum, with an end to side anas tomosis to more proximal mildly dilated small bowel. In the small bowel proximal to the ileal anastomosis, there are multiple dense stones in the lumen of the distal small bowel measuring 2 cm in size, too large to pass through the anastomosis. In the blind end of the distal small bowel at the end to side anastomosis, a metallic foreign body is present measuring 3 cm in size. This most likely represents a "pill camera". This is best shown on coronal reconstruction images 31-45. Remainder of the small bowel near the anastomosis is mildly dilated. There is no evidence of high-gr jose small bowel obstruction. Moderate stool throughout the colon. No free intraperitoneal air or fl uid. No mesenteric adenopathy. LOWER CHEST: No significant findings. No nodules or infiltrates. NON-CONTRASTED LIVER, SPLEEN, ADRENALS: Evaluation limited by lack of IV contrast. No identified sign ificant masses. PANCREAS: No masses. No peripancreatic inflammatory changes. GALLBLADDER: No identified stones by CT criteria. No inflammatory changes to suggest cholecystitis. RIGHT KIDNEY AND URETER: No suspicious masses. Assessment limited by lack of IV contrast. No signif icant calcifications. No hydronephrosis or hydroureter. LEFT KIDNEY AND URETER: No suspicious masses. Assessment limited by lack of IV contrast. No signifi cant calcifications. No hydronephrosis or hydroureter. AORTA AND RETROPERITONEUM: No aneurysm. No retroperitoneal masses or adenopathy. BOWEL AND PERITONEAL CAVITY: As above APPENDIX: Not identified. PELVIS, BLADDER, AND ABDOMINAL WALL:No abnormal masses. No free fluid. Bladder normal. Post hysterec ji BONES: No significant findings. OTHER: No other significant finding. IMPRESSION: Stricture at the anastomosis between decompressed distal 5 cm of the ileum, and mildly d ilated proximal ileum. There is evidence of anastomotic stricture, with enteroliths in the distal sm all bowel and a trapped pill camera in the blind end of the end to side anastomosis. Currently, no CT evidence of high-grade distal small-bowel obstruction is present. COMMENT: Quality ID # [id number]: Final reports with documentation of one or more dose reduction techniques (e.g., Automated exposure control, adjustment of the mA and/or kV according to patient size, use of iterative reconstruction technique) TECHNICAL DOCUMENTATION: JOB ID: [id number] [employer]- All Rights Reserved Reading location - IP/workstation name: [facility]
== END ==
LOC: RAD 08:28
PROVIDERS: ATTEND Internal Medicine Gastroenterology
DX: T18.8XXA Foreign body in other parts of alimentary tract, initial encounter (principal); X58.XXXA Exposure to other specified factors, initial encounter; Y93.9 Activity, unspecified; Y92.9 Unspecified place or not applicable; R10.32 Left lower quadrant pain; K63.3 Ulcer of intestine; D50.0 Iron deficiency anemia secondary to blood loss (chronic)
CPT/HCPCS: 74176; 82565

== ENCOUNTER 2018-01-10 15:52 | Day surgery (SDC) | payer MEDICARE, OTHER ==
[~2018-01-10 15:52] MED LIST: EPINEPHRINE INJ 1 MG/10 ML DISP.SYRIN ONE; FLUMAZENIL INJ 0.5 MG/5 ML VIAL ONE; GLUCAGON,HUMAN RECOMB 1 MG INJ ONE; NALOXONE HCL INJ/PF 0.4 MG/1 ML SDV ONE
[2018-01-10] MEDS: MIDAZOLAM 2 MG/2 ML INJ ONE ×4 (17:15→17:44)
[2018-01-10] MEDS: FENTANYL CITRATE INJ/PF 100 MCG/2 ML AMPUL ONE ×2 (17:17→17:23)
--- NOTE | 2018-01-10 18:18 | Operative Report ---
Operative Report DATE OF SURGERY: 01/10/18 Operative Report: Pre-op diagnosis: Iron deficiency anemia with terminal ileum stricture and foreign body Post-op diagnosis: 1. Terminal ileum stricture 2. Intestinal foreign bodies 3. Sigmoid diverticulosis Surgery: Colonoscopy stricture dilation and attempted foreign body removal Medications: Versed 6mg, Fentanyl 150mcg IV push Tissue removed: None Procedure: After informed consent obtained from patient, conscious sedation was achieved. A digital rectal examination was performed and this was unremarkable. The colonoscope was inserted into the rectum and advanced to the cecum. The appendiceal orifice and the terminal ileum were both identified. The mucosa was examined into details as the colonoscope was slowly pulled out of the patient. The endoscope was retroflexed in the rectum. It was difficult keeping the patient sedated. Findings Terminal ileum: There was a stricture of noted about 7 cm from the ileocolonic junction. I was not able to pass the 13.7 mm endoscope but I could see some foreign bodies beyond the stricture. It was difficult to keep the endoscope in position and the patient was also difficult to keep sedated. A 15-18 mm balloon catheter was then used to attempt dilation. The balloon was inflated to approximately 13 mm with some bleeding and more opening of the stricture site. It was still difficult to get beyond the stricture and I was not able to retrieve the foreign bodies using the Beltre net blindly. Cecum: Normal Ascending colon: Normal Transverse colon: Normal Descending colon: Normal Sigmoid colon: Multiple diverticuli Rectum: Normal except for internal hemorrhoids Plan: We will advise resection and surgical foreign body removal. OPERATION: .
[2018-01-10 18:57] VITALS: BP 149/65
== END 2018-01-10 19:00 | disposition home or self-care (01) ==
LOC: END 15:52
PROVIDERS: ATTEND Internal Medicine Gastroenterology
PROC: 0DJD8ZZ Inspection of Lower Intestinal Tract, Via Natural or Artificial Opening Endoscopic (ICD-10-PCS; principal; 2018-01-10 16:00)
DX: K56.699 Other intestinal obstruction unspecified as to partial versus complete obstruction (principal); T18.3XXA Foreign body in small intestine, initial encounter; X58.XXXA Exposure to other specified factors, initial encounter; K57.30 Diverticulosis of large intestine without perforation or abscess without bleeding; K64.8 Other hemorrhoids; D50.0 Iron deficiency anemia secondary to blood loss (chronic); K63.3 Ulcer of intestine; I10 Essential (primary) hypertension; E03.9 Hypothyroidism, unspecified; K58.9 Irritable bowel syndrome, unspecified; E11.9 Type 2 diabetes mellitus without complications; K21.9 Gastro-esophageal reflux disease without esophagitis; Z79.899 Other long term (current) drug therapy; Z87.11 Personal history of peptic ulcer disease; Z88.2 Allergy status to sulfonamides; Z88.8 Allergy status to other drugs, medicaments and biological substances; Z88.1 Allergy status to other antibiotic agents
CPT/HCPCS: 45378; 82962; C1726; J2250; J3010; J0171; J1610; J2310; J3490

== ENCOUNTER 2018-04-25 12:57 | Inpatient (IN) | payer MEDICARE, OTHER ==
[2018-04-25 15:09] LABS: HEMATOCRIT 34.6 % (36.0-47.0); HEMOGLOBIN 11.4 g/dL (12.0-15.5); MEAN CORPUSCULAR HEMOGLOBIN 27.2 pg (27.0-33.4); MEAN CORPUSCULAR VOLUME 82 fl (80-97); PLATELET COUNT 317 10^3/uL (150-450); RED BLOOD COUNT 4.21 10^6/uL (3.72-5.28); RED CELL DISTRIBUTION WIDTH 16.7 % (11.5-14.0); RETICULOCYTE COUNT (AUTO) 0.96 % (0.66-2.85); WHITE BLOOD COUNT 8.3 10^3/uL (4.0-10.5)
[2018-04-25 15:27] LABS: ALANINE AMINOTRANSFERASE 25 U/L (9-52); ALBUMIN 4.4 g/dL (3.5-5.0); ALKALINE PHOSPHATASE 95 U/L (38-126); ASPARTATE AMINO TRANSFERASE 45 U/L (14-36); BILIRUBIN,DIRECT 0.3 mg/dL (0.0-0.4); BILIRUBIN,TOTAL 0.4 mg/dL (0.2-1.3); BLOOD UREA NITROGEN 19 mg/dL (7-20); CALCIUM 7.5 mg/dL (8.4-10.2); GLUCOSE 82 mg/dL (75-110); POTASSIUM 3.4 mmol/L (3.6-5.0); TOTAL PROTEIN 8.4 g/dL (6.3-8.2)
[2018-04-25 16:37] LABS: FOLATE > 20.00 ng/mL (>2.76)
[2018-04-25 16:38] LABS: CARBON DIOXIDE 19 mmol/L (22-30); CHLORIDE 104 mmol/L (98-107)
[2018-04-25 16:39] LABS: ANION GAP 21 (5-19)
[2018-04-25] MEDS ORDERED: CALCIUM GLUCONATE 1000 MG/10 ML INJ IV ONE (17:44)
[2018-04-25] MEDS ORDERED: POTASSIUM CHLORIDE 10 MEQ CAPSULE.ER PO ONE (17:45)
[2018-04-25] MEDS ORDERED: IRON SUCROSE COMPLEX INJ/PF 100 MG/5 ML SDV IV ONE (17:45)
[2018-04-25 21:27] LABS: APPEARANCE,URINE CLOUDY; BILIRUBIN,URINE NEGATIVE (NEGATIVE); COLOR,URINE AMBER; GLUCOSE, URINE NEGATIVE (NEGATIVE); KETONES,URINE NEGATIVE (NEGATIVE); LEUKOCYTE ESTERASE,URINE MODERATE (NEGATIVE); NITRITE,URINE NEGATIVE (NEGATIVE); PROTEIN,URINE 30 mg/dL (NEGATIVE); URINE SPECIFIC GRAVITY 1.023; UROBILINOGEN,URINE NEGATIVE mg/dL (<2.0)
--- NOTE | 2018-04-25 21:46 | PDOC H&P ---
History of Present Illness Admission Date/PCP: 04/25/18 12:57 History of Present Illness: FLORENCE COON is a 72 year old female she came to the office for evaluation of multiple complaints including generalized body weakness,, sensation of crawling movement, pinprick on her face, she just recently underwent laparotomy with resection of small intestine for stricture of the small bowel, post hospital course was complicated resulting in prolonged hospitalization, this was done at the [facility] in [place]. She was evaluated in the office, the blood pressure recorded was low, she was admitted directly from the office to the hospital for evaluation, the comprehensive metabolic panel demonstrated, serum creatinine 2.25, calcium 7.0, iron 131 and hypokalemia. Past Medical History Cardiac Medical History: Reports: Hypertension Endocrine Medical History: Reports: Diabetes Mellitus Type 2, Hypothyroidism GI Medical History: Reports: Gastroesophageal Reflux Disease Psychiatric Medical History: Reports: Depression Hematology: Reports: Anemia Past Surgical History Past Surgical History: Reports: Appendectomy, Hysterectomy, Orthopedic Surgery, Tonsillectomy, Other - Laparotomy with resection of the small intestine Social History Smoking Status: Never Smoker Frequency of Alcohol Use: Occasional Hx Recreational Drug Use: No Drugs: None Hx Prescription Drug Abuse: No Family History Family History: Reviewed & Not Pertinent Parental Family History Reviewed: Yes Children Family History Reviewed: Yes Sibling(s) Family History Reviewed.: Yes Medication/Allergy Home Medications: Levothyroxine Sodium [Synthroid] 137 mcg PO Q6AM 08/03/17 Linagliptin [Tradjenta] 5 mg PO DAILY 08/03/17 Rabeprazole Sodium [Aciphex] 20 mg PO DAILY PRN 08/03/17 Verapamil HCl [Verapamil ER] 240 mg PO DAILY 08/03/17 Chlorpheniramine Maleate 4 mg PO ASDIR PRN 01/09/18 Clonazepam 0.5 mg PO ASDIR PRN 01/09/18 Clonidine HCl 0.1 mg PO QHS 01/09/18 Montelukast Sodium 10 mg PO QHS 01/09/18 Hyoscyamine Sulfate 0.125 mg PO PRN PRN 01/10/18 Valsartan/Hydrochlorothiazide [Diovan Hct 160-12.5 mg Tab] 1 each PO DAILY 01/10 Allergies/Adverse Reactions: clindamycin Allergy (Verified 01/10/18 15:55) Sulfa (Sulfonamide Antibiotics) Allergy (Verified 01/10/18 15:55) Review of Systems Constitutional: PRESENT: chills, night sweats, weakness Eyes: ABSENT: visual disturbances Ears: ABSENT: hearing changes Cardiovascular: PRESENT: other - fatique Respiratory: ABSENT: cough, hemoptysis Gastrointestinal: PRESENT: diarrhea Genitourinary: ABSENT: as per HPI, difficulty urinating, dysuria, hematuria, nocturia, other Musculoskeletal: ABSENT: joint swelling Integumentary: ABSENT: rash, wounds Neurological: PRESENT: paresthesias, tingling Psychiatric: PRESENT: depression Hematologic/Lymphatic: ABSENT: easy bleeding, easy bruising, lymphadenopathy Physical Exam Vital Signs: Temp Pulse Resp BP Pulse Ox 98.5 F 84 16 102/55 L 100 04/25/18 19:33 04/25/18 19:33 04/25/18 19:33 04/25/18 19:33 04/25/18 19:33 Intake & Output 04/24/18 04/25/18 04/26/18 06:59 06:59 06:59 Weight 60.3 kg General appearance: PRESENT: no acute distress Head exam: PRESENT: atraumatic, normocephalic Eye exam: PRESENT: PERRLA Mouth exam: PRESENT: dry mucosa Neck exam: PRESENT: full ROM Respiratory exam: PRESENT: clear to auscultation carmelo Cardiovascular exam: PRESENT: RRR, +S1, +S2 Vascular exam: PRESENT: normal capillary refill GI/Abdominal exam: PRESENT: normal bowel sounds, soft Rectal exam: PRESENT: deferred Neurological exam: PRESENT: alert, CN II-XII grossly intact Psychiatric exam: PRESENT: appropriate affect, normal mood Skin exam: PRESENT: dry, intact, warm. ABSENT: cyanosis, rash Results Laboratory Results: 04/25/18 14:54 04/25/18 14:54 04/25/18 04/25/18 04/25/18 14:54 14:54 21:05 WBC 8.3 RBC 4.21 Hgb 11.4 L Hct 34.6 L MCV 82 MCH 27.2 MCHC 33.0 RDW 16.7 H Plt Count 317 Retic Count (auto) 0.96 Absolute Retic 0.040 Sodium 144.0 Potassium 3.4 L Chloride 104 Carbon Dioxide 19 L Anion Gap 21 H BUN 19 Creatinine 2.25 H Est GFR ( Amer) 26 L Est GFR (Non-Af Amer) 21 L Glucose 82 Calcium 7.5 L Iron 31.0 L TIBC 318 % Saturation 10 Ferritin 152.00 Total Bilirubin 0.4 AST 45 H ALT 25 Alkaline Phosphatase 95 Total Protein 8.4 H Albumin 4.4 Vitamin B12 857.0 Folate > 20.00 Urine Color ALEX Urine Appearance CLOUDY Urine pH 5.0 Ur Specific Mona 1.023 Urine Protein 30 H Urine Glucose (UA) NEGATIVE Urine Ketones NEGATIVE Urine Blood NEGATIVE Urine Nitrite NEGATIVE Ur Leukocyte Esterase MODERATE H Urine WBC (Auto) 26 Urine RBC (Auto) 5 Assessment & Plan - Diagnosis (1) Acute kidney injury Is this a current diagnosis for this admission?: Yes Plan: The acute kidney injury is most likely prerenal from diarrhea, she had diarrhea since the surgery, she be hydrated with fluid (2) Iron deficiency Is this a current diagnosis for this admission?: Yes (3) Chronic diarrhea Is this a current diagnosis for this admission?: Yes (4) Hypokalemia Is this a current diagnosis for this admission?: Yes (5) Hypocalcemia Is this a current diagnosis for this admission?: Yes Plan: The facial symptoms she is manifesting is most likely from hypercalcemia, she be treated with calcium IV
[2018-04-25] MEDS: NORMAL SALINE 1000 ML 1,000 ML IV PRN (21:53)
[2018-04-25] MEDS: CITALOPRAM HYDROBROMIDE 20 MG TABLET PO SCH (22:44)
[2018-04-26] MEDS: ONDANSETRON 4 MG TAB.RAPDIS PO PRN ×2 (02:31→19:36)
[2018-04-26] MEDS: CYANOCOBALAMIN (VITAMIN B-12) INJ 1000 MCG/1 ML VIAL SUBCUT SCH (11:07)
[2018-04-26 15:45] LABS: ABSOLUTE BASOPHILS # (AUTO) 0.1 10^3/uL (0.0-0.2); ABSOLUTE EOSINOPHILS # (AUTO) 0.2 10^3/uL (0.0-0.6); ABSOLUTE LYMPHOCYTES (AUTO) 2.6 10^3/uL (0.5-4.7); ABSOLUTE NEUT (AUTO) 4.1 10^3/uL (1.7-8.2); BASOPHILS % (AUTO) 0.7 % (0-2); EOSINOPHILS % (AUTO) 2.2 % (0-6); HEMATOCRIT 31.1 % (36.0-47.0); HEMOGLOBIN 10.5 g/dL (12.0-15.5); LYMPHOCYTES % (AUTO) 32.1 % (13-45); MEAN CORPUSCULAR HEMOGLOBIN 27.3 pg (27.0-33.4); MEAN CORPUSCULAR HGB CONC 33.9 g/dL (32.0-36.0); MEAN CORPUSCULAR VOLUME 81 fl (80-97); MONOCYTES % (AUTO) 13.1 % (3-13); PLATELET COUNT 325 10^3/uL (150-450); RED BLOOD COUNT 3.86 10^6/uL (3.72-5.28); RED CELL DISTRIBUTION WIDTH 16.3 % (11.5-14.0); SEGMENTED NEUTROPHILS % (AUTO) 51.9 % (42-78); TOTAL CELLS COUNTED % (AUTO) 100 %
[2018-04-26 16:05] LABS: ALANINE AMINOTRANSFERASE 24 U/L (9-52); ALBUMIN 3.8 g/dL (3.5-5.0); ALKALINE PHOSPHATASE 78 U/L (38-126); ANION GAP 18 (5-19); ASPARTATE AMINO TRANSFERASE 40 U/L (14-36); BILIRUBIN,DIRECT 0.2 mg/dL (0.0-0.4); BILIRUBIN,TOTAL 0.2 mg/dL (0.2-1.3); BLOOD UREA NITROGEN 12 mg/dL (7-20); CALCIUM 7.4 mg/dL (8.4-10.2); CARBON DIOXIDE 16 mmol/L (22-30); CHLORIDE 112 mmol/L (98-107); GLUCOSE 92 mg/dL (75-110); POTASSIUM 3.5 mmol/L (3.6-5.0); SODIUM 146.4 mmol/L (137-145); TOTAL PROTEIN 7.6 g/dL (6.3-8.2)
[2018-04-26] MEDS ORDERED: CALCIUM GLUCONATE 1000 MG/10 ML INJ IV ONE (17:15)
--- NOTE | 2018-04-26 17:21 | PDOC PROGRESS REPORT ---
Subjective Progress Note for:: 04/26/18 Subjective:: Patient was admitted yesterday for observation and management of electrolyte derangement Reason For Visit: DEHYDRATION,ANEMIA,HYPOTENSION Physical Exam Vital Signs: Temp Pulse Resp BP Pulse Ox 98.2 F 74 16 145/69 H 100 04/26/18 15:36 04/26/18 15:36 04/26/18 15:36 04/26/18 15:36 04/26/18 15:36 Intake & Output 04/25/18 04/26/18 04/27/18 06:59 06:59 06:59 Intake Total 674 0 Balance 674 0 Weight 60.3 kg General appearance: PRESENT: no acute distress Eye exam: PRESENT: PERRLA Respiratory exam: PRESENT: clear to auscultation carmelo Cardiovascular exam: PRESENT: +S1, +S2 GI/Abdominal exam: PRESENT: soft Neurological exam: PRESENT: alert Results Laboratory Results: 04/26/18 15:12 04/26/18 15:12 04/25/18 04/26/18 04/26/18 21:05 15:12 15:12 WBC 8.0 RBC 3.86 Hgb 10.5 L Hct 31.1 L MCV 81 MCH 27.3 MCHC 33.9 RDW 16.3 H Plt Count 325 Seg Neutrophils % 51.9 Lymphocytes % 32.1 Monocytes % 13.1 H Eosinophils % 2.2 Basophils % 0.7 Absolute Neutrophils 4.1 Absolute Lymphocytes 2.6 Absolute Monocytes 1.0 Absolute Eosinophils 0.2 Absolute Basophils 0.1 Sodium 146.4 H Potassium 3.5 L Chloride 112 H Carbon Dioxide 16 L Anion Gap 18 BUN 12 Creatinine 1.63 H Est GFR ( Amer) 38 L Est GFR (Non-Af Amer) 31 L Glucose 92 Calcium 7.4 L Total Bilirubin 0.2 AST 40 H ALT 24 Alkaline Phosphatase 78 Total Protein 7.6 Albumin 3.8 Urine Color ALEX Urine Appearance CLOUDY Urine pH 5.0 Ur Specific [place] 1.023 Urine Protein 30 H Urine Glucose (UA) NEGATIVE Urine Ketones NEGATIVE Urine Blood NEGATIVE Urine Nitrite NEGATIVE Ur Leukocyte Esterase MODERATE H Urine WBC (Auto) 26 Urine RBC (Auto) 5 Assessment & Plan - Diagnosis (1) Acute kidney injury Is this a current diagnosis for this admission?: Yes (2) Iron deficiency Is this a current diagnosis for this admission?: Yes (3) Chronic diarrhea Is this a current diagnosis for this admission?: Yes (4) Hypokalemia Is this a current diagnosis for this admission?: Yes (5) Hypocalcemia Is this a current diagnosis for this admission?: Yes - Plan Summary Plan Summary: The kidney function is improving, she would need a few more days of IV fluid therapy, she still has hypocalcemia
[2018-04-26] MEDS: NORMAL SALINE 1000 ML 1,000 ML IV PRN (17:32)
[2018-04-26] MEDS: CALCIUM CARBONATE 500 MG TABLET PO SCH (21:43)
[2018-04-26] MEDS: CITALOPRAM HYDROBROMIDE 20 MG TABLET PO SCH (21:44)
[2018-04-26] MEDS: TEMAZEPAM 15 MG CAPSULE PO SCH (21:44)
[2018-04-27] MEDS: NORMAL SALINE 1000 ML 1,000 ML IV PRN (04:30)
[2018-04-27] MEDS: CALCIUM CARBONATE 500 MG TABLET PO SCH ×3 (06:11→22:11)
[2018-04-27 09:09] LABS: HEMATOCRIT 30.4 % (36.0-47.0); HEMOGLOBIN 10.3 g/dL (12.0-15.5); MEAN CORPUSCULAR HEMOGLOBIN 27.4 pg (27.0-33.4); MEAN CORPUSCULAR HGB CONC 33.8 g/dL (32.0-36.0); MEAN CORPUSCULAR VOLUME 81 fl (80-97); PLATELET COUNT 301 10^3/uL (150-450); RED BLOOD COUNT 3.75 10^6/uL (3.72-5.28); RED CELL DISTRIBUTION WIDTH 16.4 % (11.5-14.0); WHITE BLOOD COUNT 8.1 10^3/uL (4.0-10.5)
[2018-04-27 09:43] LABS: ALANINE AMINOTRANSFERASE 21 U/L (9-52); ALBUMIN 3.4 g/dL (3.5-5.0); ALKALINE PHOSPHATASE 77 U/L (38-126); ANION GAP 15 (5-19); ASPARTATE AMINO TRANSFERASE 37 U/L (14-36); BILIRUBIN,DIRECT 0.2 mg/dL (0.0-0.4); BILIRUBIN,TOTAL 0.3 mg/dL (0.2-1.3); BLOOD UREA NITROGEN 7 mg/dL (7-20); CALCIUM 7.4 mg/dL (8.4-10.2); CARBON DIOXIDE 17 mmol/L (22-30); CHLORIDE 114 mmol/L (98-107); GLUCOSE 81 mg/dL (75-110); POTASSIUM 3.2 mmol/L (3.6-5.0); SODIUM 145.5 mmol/L (137-145); TOTAL PROTEIN 6.7 g/dL (6.3-8.2)
[2018-04-27] MEDS: CHOLECALCIFEROL (D3) 1,000 UNIT TABLET PO SCH (09:58)
[2018-04-27] MEDS: LEVOTHYROXINE SODIUM 0.025 MG TABLET PO SCH (09:59)
[2018-04-27] MEDS: LEVOTHYROXINE SODIUM 0.112 MG TABLET PO SCH (09:59)
[2018-04-27] MEDS: CYANOCOBALAMIN (VITAMIN B-12) INJ 1000 MCG/1 ML VIAL SUBCUT SCH (09:59)
[2018-04-27] MEDS ORDERED: (PENDING PHARMACY ID) (Ondansetron Hcl [Zofran 4 Mg Tablet] 4 MG) PO PRN (12:53)
[2018-04-27] MEDS ORDERED: TRAZODONE HCL 50 MG TABLET PO PRN (12:53)
[2018-04-27] MEDS ORDERED: (PENDING PHARMACY ID) (Levothyroxine Sodium [Synthroid] 137 MCG) PO SCH (13:00)
[2018-04-27] MEDS ORDERED: (PENDING PHARMACY ID) (Loratadine [Claritin] 10 MG) PO SCH (13:00)
[2018-04-27] MEDS: ONDANSETRON 4 MG TAB.RAPDIS PO PRN ×2 (13:08→19:11)
[2018-04-27] MEDS: POTASSI CL 20 MEQ/50 ML RIDER 20 MEQ/50 ML RTUPB IV SCH ×2 (13:53→16:10)
[2018-04-27] MEDS: LOSARTAN POTASSIUM 50 MG TABLET PO SCH (13:53)
[2018-04-27] MEDS: LORATADINE 10 MG TABLET PO SCH (13:54)
[2018-04-27] MEDS: MONTELUKAST SODIUM 10 MG TABLET PO SCH (17:21)
[2018-04-27] MEDS: GABAPENTIN 300 MG CAPSULE PO SCH (17:21)
[2018-04-27 18:35] LABS: ALANINE AMINOTRANSFERASE 20 U/L (9-52); ALBUMIN 3.5 g/dL (3.5-5.0); ALKALINE PHOSPHATASE 76 U/L (38-126); ANION GAP 17 (5-19); ASPARTATE AMINO TRANSFERASE 37 U/L (14-36); BILIRUBIN,DIRECT 0.2 mg/dL (0.0-0.4); BILIRUBIN,TOTAL 0.2 mg/dL (0.2-1.3); BLOOD UREA NITROGEN 7 mg/dL (7-20); CALCIUM 7.6 mg/dL (8.4-10.2); CARBON DIOXIDE 16 mmol/L (22-30); CHLORIDE 113 mmol/L (98-107); GLUCOSE 115 mg/dL (75-110); POTASSIUM 3.5 mmol/L (3.6-5.0); SODIUM 145.5 mmol/L (137-145)
--- NOTE | 2018-04-27 20:17 | PDOC PROGRESS REPORT ---
Subjective Progress Note for:: 04/27/18 Subjective:: Patient was admitted for observation initially for the management of acute kidney injury associated with electrolyte derangement, the blood pressure is elevated today, the normal saline is discontinued, this is transitioned to Ringer's lactate Reason For Visit: DEHYDRATION,ANEMIA,HYPOTENSION Physical Exam Vital Signs: Temp Pulse Resp BP Pulse Ox 98.9 F 78 16 160/89 H 96 04/27/18 15:47 04/27/18 15:47 04/27/18 15:47 04/27/18 15:47 04/27/18 15:47 Intake & Output 04/26/18 04/27/18 04/28/18 06:59 06:59 06:59 Intake Total 674 2815 1922 Balance 674 2815 1922 Weight 60.3 kg General appearance: PRESENT: no acute distress Respiratory exam: PRESENT: clear to auscultation carmelo Cardiovascular exam: PRESENT: +S1, +S2 Neurological exam: PRESENT: alert Results Laboratory Results: 04/27/18 08:36 04/27/18 17:56 04/27/18 04/27/18 04/27/18 08:36 08:36 17:56 WBC 8.1 RBC 3.75 Hgb 10.3 L Hct 30.4 L MCV 81 MCH 27.4 MCHC 33.8 RDW 16.4 H Plt Count 301 Sodium 145.5 H 145.5 H Potassium 3.2 L 3.5 L Chloride 114 H 113 H Carbon Dioxide 17 L 16 L Anion Gap 15 17 BUN 7 7 Creatinine 1.30 H 1.36 H Est GFR ( Amer) 49 L 46 L Est GFR (Non-Af Amer) 40 L 38 L Glucose 81 115 H Calcium 7.4 L 7.6 L Total Bilirubin 0.3 0.2 AST 37 H 37 H ALT 21 20 Alkaline Phosphatase 77 76 Total Protein 6.7 7.0 Albumin 3.4 L 3.5 Assessment & Plan - Diagnosis (1) Acute kidney injury Is this a current diagnosis for this admission?: Yes Plan: Change normal saline to Ringer's lactate (2) Iron deficiency Is this a current diagnosis for this admission?: Yes (3) Chronic diarrhea Is this a current diagnosis for this admission?: Yes (4) Hypokalemia Is this a current diagnosis for this admission?: Yes (5) Hypocalcemia Is this a current diagnosis for this admission?: Yes (6) Hypertension Qualifiers: Hypertension type: essential hypertension Qualified Code(s): I10 - Essential (primary) hypertension Is this a current diagnosis for this admission?: Yes Plan: Start oral losartan for blood pressure control, as needed hydralazine
[2018-04-27] MEDS: DEXTROSE 5%-LACTATED RINGERS 1,000 ML IV PRN (22:10)
[2018-04-27] MEDS: TEMAZEPAM 15 MG CAPSULE PO SCH (22:11)
[2018-04-27] MEDS: CITALOPRAM HYDROBROMIDE 20 MG TABLET PO SCH (22:11)
[2018-04-28] MEDS: HYDRALAZINE HCL INJ/PF 20 MG/1 ML SDV IV PRN ×2 (03:41→11:58)
[2018-04-28] MEDS: LEVOTHYROXINE SODIUM 0.025 MG TABLET PO SCH (05:35)
[2018-04-28] MEDS: LEVOTHYROXINE SODIUM 0.112 MG TABLET PO SCH (05:35)
[2018-04-28] MEDS: GABAPENTIN 300 MG CAPSULE PO SCH ×2 (05:36→17:20)
[2018-04-28] MEDS: CALCIUM CARBONATE 500 MG TABLET PO SCH ×2 (05:36→13:45)
[2018-04-28 05:59] LABS: ALANINE AMINOTRANSFERASE 19 U/L (9-52); ALBUMIN 3.4 g/dL (3.5-5.0); ALKALINE PHOSPHATASE 70 U/L (38-126); ANION GAP 15 (5-19); ASPARTATE AMINO TRANSFERASE 34 U/L (14-36); BILIRUBIN,DIRECT 0.3 mg/dL (0.0-0.4); BILIRUBIN,TOTAL 0.4 mg/dL (0.2-1.3); BLOOD UREA NITROGEN 5 mg/dL (7-20); CALCIUM 7.4 mg/dL (8.4-10.2); CARBON DIOXIDE 17 mmol/L (22-30); CHLORIDE 112 mmol/L (98-107); GLUCOSE 98 mg/dL (75-110); POTASSIUM 3.2 mmol/L (3.6-5.0); SODIUM 144.2 mmol/L (137-145); TOTAL PROTEIN 6.6 g/dL (6.3-8.2)
[2018-04-28] MEDS: EZETIMIBE 10 MG TABLET PO SCH ×2 (09:42→09:49)
[2018-04-28] MEDS: CHOLECALCIFEROL (D3) 1,000 UNIT TABLET PO SCH (09:42)
[2018-04-28] MEDS: LORATADINE 10 MG TABLET PO SCH (09:42)
[2018-04-28] MEDS: LOSARTAN POTASSIUM 50 MG TABLET PO SCH (09:42)
[2018-04-28] MEDS: CYANOCOBALAMIN (VITAMIN B-12) INJ 1000 MCG/1 ML VIAL SUBCUT SCH (09:43)
[2018-04-28] MEDS: DEXTROSE 5%-LACTATED RINGERS 1,000 ML IV PRN (09:46)
[2018-04-28] MEDS: ONDANSETRON 4 MG TAB.RAPDIS PO PRN (11:58)
[2018-04-28] MEDS ORDERED: ACETAMINOPHEN 325 MG TABLET PO PRN (13:22)
[2018-04-28] MEDS: POTASSI CL 20 MEQ/50 ML RIDER 20 MEQ/50 ML RTUPB IV SCH ×2 (13:43→15:49)
[2018-04-28] MEDS: MONTELUKAST SODIUM 10 MG TABLET PO SCH (17:20)
[2018-04-28 17:51] LABS: HEMATOCRIT 31.1 % (36.0-47.0); HEMOGLOBIN 10.6 g/dL (12.0-15.5); MEAN CORPUSCULAR HEMOGLOBIN 27.4 pg (27.0-33.4); MEAN CORPUSCULAR HGB CONC 34.1 g/dL (32.0-36.0); MEAN CORPUSCULAR VOLUME 81 fl (80-97); PLATELET COUNT 290 10^3/uL (150-450); RED BLOOD COUNT 3.85 10^6/uL (3.72-5.28); RED CELL DISTRIBUTION WIDTH 16.3 % (11.5-14.0); WHITE BLOOD COUNT 10.3 10^3/uL (4.0-10.5)
[2018-04-28 17:57] LABS: ALANINE AMINOTRANSFERASE 19 U/L (9-52); ALBUMIN 3.4 g/dL (3.5-5.0); ALKALINE PHOSPHATASE 71 U/L (38-126); ANION GAP 17 (5-19); ASPARTATE AMINO TRANSFERASE 37 U/L (14-36); BILIRUBIN,DIRECT 0.2 mg/dL (0.0-0.4); BILIRUBIN,TOTAL 0.2 mg/dL (0.2-1.3); BLOOD UREA NITROGEN 5 mg/dL (7-20); CALCIUM 7.9 mg/dL (8.4-10.2); CARBON DIOXIDE 17 mmol/L (22-30); CHLORIDE 111 mmol/L (98-107); GLUCOSE 135 mg/dL (75-110); POTASSIUM 3.3 mmol/L (3.6-5.0); SODIUM 145.3 mmol/L (137-145); TOTAL PROTEIN 6.8 g/dL (6.3-8.2)
[2018-04-28 17:58] VITALS: BP 124/63
--- NOTE | 2018-04-28 18:58 | PDOC DISCHARGE SUMMARY ---
General - Admit/Disc Date/PCP Admission Date/Primary Care Provider: 04/27/18 11:05 Discharge Date: 04/28/18 - Discharge Diagnosis (1) Acute kidney injury Is this a current diagnosis for this admission?: Yes (2) Iron deficiency Is this a current diagnosis for this admission?: Yes (3) Chronic diarrhea Is this a current diagnosis for this admission?: Yes (4) Hypokalemia Is this a current diagnosis for this admission?: Yes (5) Hypocalcemia Is this a current diagnosis for this admission?: Yes (6) Hypertension Is this a current diagnosis for this admission?: Yes - Additional Information Discharge Diet: As Tolerated Discharge Activity: Activity As Tolerated, Balance Activity w/Rest Prescriptions: Citalopram Hydrobromide [Celexa 20 mg Tablet] 10 mg PO QHS #90 tablet Calcium Carbonate [Os-Juan Pablo 500 mg Tablet (Oyster-Shell)] 500 mg PO Q8 #90 tablet Cholecalciferol (Vitamin D3) [Vitamin D3 1000 Unit Tablet] 1,000 unit PO DAILY # 90 tablet Diphenoxylate HCl/Atropine [Lomotil Tablet] 1 each PO Q6H #120 tablet Losartan Potassium [Cozaar 50 mg Tablet] 100 mg PO DAILY #90 tablet Potassium Chloride 40 meq PO DAILY #90 tab.er.prt Home Medications: Clonazepam [Klonopin 1 mg Tablet] 1 mg PO DAILYP PRN 04/27/18 Clonidine HCl [Catapres 0.1 mg Tablet] 0.1 mg PO DAILY 04/27/18 Ezetimibe [Zetia 10 mg Tablet] 10 mg PO DAILY 04/27/18 Ferrous Sulfate [Feosol 325 mg Tablet] 325 mg PO DAILY 04/27/18 Gabapentin [Neurontin 300 mg Capsule] 300 mg PO TID 04/27/18 Hyoscyamine Sulfate [Levsin-Sl] 0.125 mg SL BID 04/27/18 Levothyroxine Sodium [Synthroid] 137 mcg PO Q6AM 04/27/18 Loratadine [Claritin] 10 mg PO DAILY 04/27/18 Montelukast Sodium [Singulair 10 mg Tablet] 10 mg PO QPM 04/27/18 Ondansetron HCl [Zofran 4 mg Tablet] 4 mg PO Q4HP PRN 04/27/18 Pravastatin Sodium [Pravachol] 20 mg PO QHS 04/27/18 Rabeprazole Sodium [Aciphex] 20 mg PO DAILY 04/27/18 Trazodone HCl [Desyrel 50 mg Tablet] 50 mg PO HSP PRN 04/27/18 Verapamil HCl [Verapamil ER] 240 mg PO DAILY 04/27/18 Calcium Carbonate [Os-Juan Pablo 500 mg Tablet (Oyster-Shell)] 500 mg PO Q8 #90 tablet 04/28/18 Cholecalciferol (Vitamin D3) [Vitamin D3 1000 Unit Tablet] 1,000 unit PO DAILY # 90 tablet 04/28/18 Citalopram Hydrobromide [Celexa 20 mg Tablet] 10 mg PO QHS #90 tablet 04/28/18 Diphenoxylate HCl/Atropine [Lomotil Tablet] 1 each PO Q6H #120 tablet 04/28/18 Losartan Potassium [Cozaar 50 mg Tablet] 100 mg PO DAILY #90 tablet 04/28/18 Potassium Chloride 40 meq PO DAILY #90 tab.er.prt 04/28/18 History of Present Illness History of Present Illness: FLORENCE COON is a 72 year old female she came to the office for evaluation of multiple complaints including generalized body weakness,, sensation of crawling movement, pinprick on her face, she just recently underwent laparotomy with resection of small intestine for stricture of the small bowel, post hospital course was complicated resulting in prolonged hospitalization, this was done at the [facility] in [place]. She was evaluated in the office, the blood pressure recorded was low, she was admitted directly from the office to the hospital for evaluation, the comprehensive metabolic panel demonstrated, serum creatinine 2.25, calcium 7.0, iron 131 and hypokalemia. Hospital Course Hospital Course: Patient was admitted for the management of chronic diarrhea since she had laparotomy with resection of the small intestine. There was associated acute kidney injury due to dehydration, hypokalemia, hypocalcemia, low blood pressure. She was treated with IV fluids the potassium was replaced, calcium was replaced, she had multiple potassium infusion.The kidney function is normalized Physical Exam Vital Signs: Temp Pulse Resp BP Pulse Ox 98.8 F 103 H 16 124/63 97 04/28/18 17:53 04/28/18 17:53 04/28/18 17:53 04/28/18 17:53 04/28/18 17:53 Intake & Output 04/27/18 04/28/18 04/29/18 06:59 06:59 06:59 Intake Total 2815 0 2215 Balance 2815 8783 2211 General appearance: PRESENT: no acute distress, well-developed, well-nourished Head exam: PRESENT: atraumatic, normocephalic Eye exam: PRESENT: conjunctiva pink, EOMI, PERRLA Ear exam: PRESENT: normal external ear exam Mouth exam: PRESENT: moist, tongue midline Neck exam: PRESENT: full ROM Respiratory exam: PRESENT: clear to auscultation carmelo Cardiovascular exam: PRESENT: RRR, +S1, +S2 Pulses: PRESENT: normal dorsalis pedis pul, +2 pedal pulses bilateral Vascular exam: PRESENT: normal capillary refill GI/Abdominal exam: PRESENT: normal bowel sounds, soft Rectal exam: PRESENT: deferred Neurological exam: PRESENT: alert, awake, oriented to person, oriented to place , oriented to time, oriented to situation, CN II-XII grossly intact Psychiatric exam: PRESENT: appropriate affect, normal mood Skin exam: PRESENT: dry, intact, warm Results Laboratory Results: 04/28/18 17:30 04/28/18 17:30 04/28/18 04/28/18 04/28/18 04:37 17:30 17:30 WBC 10.3 RBC 3.85 Hgb 10.6 L Hct 31.1 L MCV 81 MCH 27.4 MCHC 34.1 RDW 16.3 H Plt Count 290 Sodium 144.2 145.3 H Potassium 3.2 L 3.3 L Chloride 112 H 111 H Carbon Dioxide 17 L 17 L Anion Gap 15 17 BUN 5 L 5 L Creatinine 1.24 1.28 H Est GFR ( Amer) 51 L 50 L Est GFR (Non-Af Amer) 43 L 41 L Glucose 98 135 H Calcium 7.4 L 7.9 L Total Bilirubin 0.4 0.2 AST 34 37 H ALT 19 19 Alkaline Phosphatase 70 71 Total Protein 6.6 6.8 Albumin 3.4 L 3.4 L Qualifiers - * PATIENT BEING DISCHARGED WITH ANY OF THE FOLLOWING DIAGNOSIS: No
== END 2018-04-28 19:00 | disposition home or self-care (01) | DRG 684 ==
LOC: 5 12:57 → OBSVTOIN 04-27 11:05
PROVIDERS: ADMIT Internal Medicine; ATTEND Internal Medicine
DX: N17.9 Acute kidney failure, unspecified (principal); E86.0 Dehydration; D50.9 Iron deficiency anemia, unspecified; E87.6 Hypokalemia; E83.51 Hypocalcemia; I10 Essential (primary) hypertension; K21.9 Gastro-esophageal reflux disease without esophagitis; F32.9 Major depressive disorder, single episode, unspecified; E03.9 Hypothyroidism, unspecified; K52.9 Noninfective gastroenteritis and colitis, unspecified; Z79.899 Other long term (current) drug therapy; Z90.49 Acquired absence of other specified parts of digestive tract; Z88.2 Allergy status to sulfonamides; Z88.1 Allergy status to other antibiotic agents
CPT/HCPCS: 36415; 80048; 80053; 80076; 81001; 82607; 82728; 82746; 83540; 83550; 85025; 85027; 85045; 87493; G0378; G0379; J0360; J0610; J1756; J3420; J3480; J3490; J7030; S0119

== ENCOUNTER → 2018-05-16 | Outpatient (CLI) | payer MEDICARE, OTHER ==
[2018-05-16 16:11] LABS: ANION GAP 19 (5-19); BLOOD UREA NITROGEN 16 mg/dL (7-20); CARBON DIOXIDE 15 mmol/L (22-30); CHLORIDE 114 mmol/L (98-107); GLUCOSE 102 mg/dL (75-110); POTASSIUM 4.9 mmol/L (3.6-5.0); SODIUM 147.5 mmol/L (137-145)
[2018-05-16 16:26] LABS: CALCIUM 6.9 mg/dL (8.4-10.2)
[2018-05-17 09:12] LABS: ALANINE AMINOTRANSFERASE 27 U/L (9-52); ALBUMIN 3.9 g/dL (3.5-5.0); ALKALINE PHOSPHATASE 71 U/L (38-126); ASPARTATE AMINO TRANSFERASE 48 U/L (14-36); BILIRUBIN,DIRECT 0.1 mg/dL (0.0-0.4); BILIRUBIN,TOTAL 0.1 mg/dL (0.2-1.3); TOTAL PROTEIN 7.8 g/dL (6.3-8.2)
== END ==
LOC: LAB 15:35
PROVIDERS: ATTEND Internal Medicine Gastroenterology
DX: E87.6 Hypokalemia (principal); R10.13 Epigastric pain
CPT/HCPCS: 36415; 80048; 80076

== ENCOUNTER 2018-07-10 09:58 | Emergency (ER) | payer MEDICARE, OTHER ==
[2018-07-10] MEDS ORDERED: CLONIDINE HCL 0.1 MG TABLET PO ONE (10:34)
--- NOTE | 2018-07-10 10:36 | ER Document Report ---
ED General - General Chief Complaint: High Blood Pressure Stated Complaint: BLOOD PRESSURE ISSUE Time Seen by Provider: 07/10/18 10:24 Mode of Arrival: Ambulatory Information source: Patient Notes: 72-year-old female presents emergency department with complaints of elevated blood pressure. Patient states that she has been tracking her blood pressure since 07/04/15. She states that it has been elevated daily. She is currently on losartan 100 mg p.o. daily. Patient follows up with Dr. Herrera. Patient notes that today she is been having a slight headache associated with the elevated blood pressure. Her blood pressure in the emergency department is 156/ 88. Patient denies any vision changes, speech changes, numbness, tingling, weakness, chest pain, shortness of breath. TRAVEL OUTSIDE OF THE [place] IN LAST 30 DAYS: No - HPI Onset: Other - last week Onset/Duration: Gradual Quality of pain: No pain Severity: None Associated symptoms: None Exacerbated by: Denies Relieved by: Denies Similar symptoms previously: Yes Recently seen / treated by doctor: Yes - Related Data Allergies/Adverse Reactions: clindamycin Allergy (Verified 07/10/18 10:07) Sulfa (Sulfonamide Antibiotics) Allergy (Verified 07/10/18 10:07) Past Medical History - Social History Smoking Status: Never Smoker Chew tobacco use (# tins/day): No Frequency of alcohol use: Rare Drug Abuse: None Family History: Reviewed & Not Pertinent Patient has suicidal ideation: No Patient has homicidal ideation: No - Past Medical History Cardiac Medical History: Reports: Hx Hypertension Denies: Hx Atrial Fibrillation, Hx Congestive Heart Failure, Hx Coronary Artery Disease, Hx Heart Attack, Hx Hypercholesterolemia, Hx Peripheral Vascular Disease, Hx Pulmonary Embolism, Hx Heart Murmur Pulmonary Medical History: Denies: Hx Asthma, Hx Bronchitis, Hx COPD, Hx Pneumonia, Hx Respiratory Failure, Hx Sleep Apnea, Hx Tuberculosis Neurological Medical History: Denies: Hx Cerebrovascular Accident, Hx Seizures Endocrine Medical History: Reports: Hx Diabetes Mellitus Type 2, Hx Hypothyroidism. Denies: Hx Graves' Disease, Hx Hyperthyroidism Renal/ Medical History: Denies: Hx Ovarian Cysts, Hx Peritoneal Dialysis, Hx Pelvic Inflammatory Disease Malignancy Medical History: Denies: Hx Breast Cancer, Hx Cervical Cancer, Hx Leukemia, Hx Lung Cancer, Hx Ovarian Cancer GI Medical History: Reports: Hx Gastroesophageal Reflux Disease. Denies: Hx Crohn's Disease, Hx Hiatal Hernia, Hx Irritable Bowel, Hx Liver Failure, Hx Pancreatitis, Hx Ulcer Musculoskeletal Medical History: Denies Hx Arthritis, Denies Hx Fibromyalgia, Denies Hx Muscular Dystrophy Psychiatric Medical History: Reports: Hx Depression Denies: Hx Bipolar Disorder, Hx Post Traumatic Stress Disorder, Hx Schizophrenia Traumatic Medical History: Denies: Hx Fractures Infectious Medical History: Denies: Hx HIV Past Surgical History: Reports: Hx Abdominal Surgery, Hx Appendectomy, Hx Bowel Surgery, Hx Hysterectomy, Hx Orthopedic Surgery, Hx Tonsillectomy, Other - Laparotomy with resection of the small intestine. Denies: Hx Section, Hx Cholecystectomy, Hx Colostomy, Hx Coronary Artery Bypass Graft, Hx Gastric Bypass Surgery, Hx Herniorrhaphy, Hx Mastectomy, Hx Pacemaker, Hx Tubal Ligation - Immunizations Hx Diphtheria, Pertussis, Tetanus Vaccination: Yes Review of Systems - Review of Systems Constitutional: No symptoms reported EENT: No symptoms reported Cardiovascular: No symptoms reported Respiratory: No symptoms reported Gastrointestinal: No symptoms reported Genitourinary: No symptoms reported Musculoskeletal: No symptoms reported Skin: No symptoms reported Hematologic/Lymphatic: No symptoms reported Neurological/Psychological: No symptoms reported -: Yes All other systems reviewed and negative Physical Exam - Vital signs Vitals: Temp Pulse Resp BP Pulse Ox 97.3 F 73 16 156/88 H 100 07/10/18 10:11 07/10/18 10:11 07/10/18 10:11 07/10/18 10:11 07/10/18 10:11 - General Notes: PHYSICAL EXAMINATION: GENERAL: Well-appearing, well-nourished and in no acute distress. HEAD: Atraumatic, normocephalic. EYES: Pupils equal round and reactive to light, extraocular movements intact, conjunctiva are normal. ENT: Nares patent, oropharynx clear without exudates. Moist mucous membranes. NECK: Normal range of motion, supple without lymphadenopathy LUNGS: Breath sounds clear to auscultation bilaterally and equal. No wheezes rales or rhonchi. HEART: Regular rate and rhythm without murmurs ABDOMEN: Soft, nontender, nondistended abdomen. No guarding, no rebound. No masses appreciated. Female : deferred Musculoskeletal: Normal range of motion, no pitting or edema. No cyanosis. NEUROLOGICAL: Cranial nerves grossly intact. Normal speech, normal gait. Normal sensory, motor exams PSYCH: Normal mood, normal affect. SKIN: Warm, Dry, normal turgor, no rashes or lesions noted. Course - Re-evaluation Re-evalutation: 07/10/18 10:37 Patient given 0.1 mg clonidine in the emergency department. I contacted Dr. Jackson who is on-call for Dr. Herrera. He would like the patient started on amlodipine 5 mg daily. Patient has a follow-up appointment with Dr. Herrera on 07/12/18. - Vital Signs Vital signs: Temp Pulse Resp BP Pulse Ox 97.3 F 73 16 156/88 H 100 07/10/18 10:11 07/10/18 10:11 07/10/18 10:11 07/10/18 10:11 07/10/18 10:11 - Laboratory Result Diagrams: 07/10/18 10:45 Laboratory results interpreted by me: 07/10/18 10:45 Chloride 108 H Carbon Dioxide 19 L Est GFR (Non-Af Amer) 51 L AST 62 H Discharge - Discharge Clinical Impression: Hypertension Qualifiers: Hypertension type: unspecified Qualified Code(s): I10 - Essential (primary) hypertension Condition: Good Disposition: HOME, SELF-CARE Instructions: High Blood Pressure ([facility]) Prescriptions: Amlodipine Besylate 5 mg PO DAILY #10 tab Referrals: BASSEM LA MD [Primary Care Provider] - Follow up as needed TERRI HERRERA MD [ACTIVE STAFF] - Follow up as needed
[2018-07-10] MEDS ORDERED: ACETAMINOPHEN 325 MG TABLET PO ONE (10:38)
[2018-07-10 11:39] LABS: ALANINE AMINOTRANSFERASE 52 U/L (9-52); ALBUMIN 4.6 g/dL (3.5-5.0); ALKALINE PHOSPHATASE 64 U/L (38-126); ANION GAP 15 (5-19); ASPARTATE AMINO TRANSFERASE 62 U/L (14-36); BILIRUBIN,DIRECT 0.1 mg/dL (0.0-0.4); BILIRUBIN,TOTAL 0.4 mg/dL (0.2-1.3); BLOOD UREA NITROGEN 11 mg/dL (7-20); CARBON DIOXIDE 19 mmol/L (22-30); CHLORIDE 108 mmol/L (98-107); GLUCOSE 89 mg/dL (75-110); POTASSIUM 4.6 mmol/L (3.6-5.0); SODIUM 141.5 mmol/L (137-145); TOTAL PROTEIN 8.1 g/dL (6.3-8.2)
[2018-07-10 12:06] VITALS: BP 154/86
== END 2018-07-10 12:06 | disposition home or self-care (01) ==
LOC: ER 09:58
DX: I10 Essential (primary) hypertension (principal); E11.9 Type 2 diabetes mellitus without complications; E03.9 Hypothyroidism, unspecified; Z90.710 Acquired absence of both cervix and uterus; Z88.3 Allergy status to other anti-infective agents; Z88.2 Allergy status to sulfonamides
CPT/HCPCS: 99283; 36415; 80053; A9270 ×2

== ENCOUNTER → 2018-10-03 | Outpatient (CLI) | payer MEDICARE, OTHER ==
--- NOTE | 2018-10-03 10:23 | WOMENS IMAGING REPORT ---
EXAM DESCRIPTION: 3D SCREENING MAMMO BILAT COMPLETED DATE/TIME: 10/03/2018 10:04 am REASON FOR STUDY: ROUTINE BILATERAL SCREENING;Z12.31 Z12.31 ENCNTR SCREEN MAMMOGRAM FOR MALIGNANT N EOPLASM OF MIRIAM COMPARISON: 06/16/2017 and 06/08/2016. TECHNIQUE: Standard craniocaudal and mediolateral oblique views of each breast recorded using digita l acquisition and breast tomosynthesis. LIMITATIONS: None. FINDINGS: No masses, calcifications or architectural distortion. No areas of suspicion. Read with the assistance of CAD. .[facility] - R2 Cenova Version 1.3 .[facility] Imaging - R2 Cenova Version 1.3 .[facility] - R2 Cenova Version 2.4 .[facility] - R2 Cenova Version 2.4 .[facility] - R2 [employer]ermaker Ship Version 9.2 IMPRESSION: NORMAL MAMMOGRAM. BIRADS 1. BREAST DENSITY: b. There are scattered areas of fibroglandular density. BIRAD: 1 NEGATIVE RECOMMENDATION: ROUTINE SCREENING COMMENT: The patient has been notified of the results by letter per SA requirements. Additional no tification policies are in place for contacting patient with suspicious or incomplete findings. Quality ID #225: The [employer] recommends an annual screening mammogram for women aged 40 years or over. This facility utilizes a reminder system to ensure that all patients receive reminder letters, and/or direct phone calls for appointments. This includes reminders for routine scr eening mammograms, diagnostic mammograms, or other Breast Imaging Interventions when appropriate. Th is patient will be placed in the appropriate reminder system. The [employer] (ACR) has developed recommendations for screening MRI of the breast s in certain patient populations, to be used in conjunction with mammography. Breast MRI surveillanc e may be appropriate for women with more than 20% lifetime risk of developing breast cancer as deter mined by genetic testing, significant family history of the disease, or history of mantle radiation f or Hodgkins Disease. ACR Practice Guidelines 2008. DBT Technology DBT is a type of tomographic mammography. With conventional mammography, overlapping breast tissue ma y make lesions difficult to detect, even with good compression. DBT uses an x-ray tube that rotates a round the breast, taking images at different angles. These images are then combined to create thin sl ices of the breast that the radiologist can view as a 3D reconstruction. The [employer] unit can perform full-field digital mammograms (2D imaging); or DBT (3D imaging); or both, in a combination mode that quickly performs both the mammogram and the tomosynthesis scan while the breast is still compressed. PQRS 6045F: Fluoroscopic imaging is not utilized for breast tomosynthesis. TECHNICAL DOCUMENTATION: FINDING NUMBER: (1) ASSESSMENT: (1) JOB ID: [id number] [employer]- All Rights Reserved Reading location - IP/workstation name: [email or web address]
== END ==
LOC: WI 09:53
PROVIDERS: ATTEND Obstetrics & Gynecology Gynecology
DX: Z12.31 Encounter for screening mammogram for malignant neoplasm of breast (principal)
CPT/HCPCS: 77063; 77067

== ENCOUNTER 2018-12-14 18:34 | Emergency (ER) | payer MEDICARE, OTHER ==
[2018-12-14] MEDS ORDERED: IBUPROFEN 600 MG TABLET PO ONE (21:26)
[2018-12-14 22:11] LABS: ABSOLUTE BASOPHILS # (AUTO) 0.1 10^3/uL (0.0-0.2); ABSOLUTE EOSINOPHILS # (AUTO) 0.1 10^3/uL (0.0-0.6); ABSOLUTE LYMPHOCYTES (AUTO) 2.2 10^3/uL (0.5-4.7); ABSOLUTE MONOCYTES (AUTO) 0.9 10^3/uL (0.1-1.4); ABSOLUTE NEUT (AUTO) 6.7 10^3/uL (1.7-8.2); BASOPHILS % (AUTO) 1.1 % (0-2); EOSINOPHILS % (AUTO) 1.3 % (0-6); HEMATOCRIT 31.3 % (36.0-47.0); HEMOGLOBIN 10.3 g/dL (12.0-15.5); LYMPHOCYTES % (AUTO) 22.2 % (13-45); MEAN CORPUSCULAR HEMOGLOBIN 28.5 pg (27.0-33.4); MEAN CORPUSCULAR HGB CONC 32.9 g/dL (32.0-36.0); MEAN CORPUSCULAR VOLUME 87 fl (80-97); MONOCYTES % (AUTO) 9.1 % (3-13); PLATELET COUNT 304 10^3/uL (150-450); RED BLOOD COUNT 3.62 10^6/uL (3.72-5.28); RED CELL DISTRIBUTION WIDTH 14.3 % (11.5-14.0); SEGMENTED NEUTROPHILS % (AUTO) 66.3 % (42-78); TOTAL CELLS COUNTED % (AUTO) 100 %; WHITE BLOOD COUNT 10.1 10^3/uL (4.0-10.5)
--- NOTE | 2018-12-14 22:11 | ER Document Report ---
ED General - General Chief Complaint: Leg Swelling Stated Complaint: LEG PAIN/SWELLING Time Seen by Provider: 12/14/18 21:19 Primary Care Provider: TERRI HERRERA MD [Primary Care Provider] - 12/18/18 Mode of Arrival: Ambulatory Information source: Patient Notes: This is a 73-year-old female with a history of hypertension and dyslipidemia who presents to the emergency room with right calf pain for 1 day. She denies any chest pain, shortness of breath, fever. TRAVEL OUTSIDE OF THE [place] IN LAST 30 DAYS: No - HPI Onset: Yesterday Onset/Duration: Gradual Quality of pain: Dull Severity: Moderate Pain Level: 2 Associated symptoms: denies: Chest pain, Fever, Shortness of breath Exacerbated by: Denies Relieved by: Denies Similar symptoms previously: No Recently seen / treated by doctor: Yes - Related Data Allergies/Adverse Reactions: clindamycin Allergy (Verified 07/10/18 10:07) Sulfa (Sulfonamide Antibiotics) Allergy (Verified 07/10/18 10:07) Past Medical History - General Information source: Patient - Social History Smoking Status: Never Smoker Cigarette use (# per day): No Chew tobacco use (# tins/day): No Frequency of alcohol use: None Drug Abuse: None Lives with: Family Family History: Reviewed & Not Pertinent Patient has suicidal ideation: No Patient has homicidal ideation: No - Past Medical History Cardiac Medical History: Reports: Hx Hypertension Denies: Hx Atrial Fibrillation, Hx Congestive Heart Failure, Hx Coronary Artery Disease, Hx Heart Attack, Hx Hypercholesterolemia, Hx Peripheral Vascular Disease, Hx Pulmonary Embolism, Hx Heart Murmur Pulmonary Medical History: Denies: Hx Asthma, Hx Bronchitis, Hx COPD, Hx Pneumonia, Hx Respiratory Failure, Hx Sleep Apnea, Hx Tuberculosis Neurological Medical History: Denies: Hx Cerebrovascular Accident, Hx Seizures Endocrine Medical History: Reports: Hx Diabetes Mellitus Type 2, Hx Hypothyroidism. Denies: Hx Graves' Disease, Hx Hyperthyroidism Renal/ Medical History: Denies: Hx Ovarian Cysts, Hx Peritoneal Dialysis, Hx Pelvic Inflammatory Disease Malignancy Medical History: Denies: Hx Breast Cancer, Hx Cervical Cancer, Hx Leukemia, Hx Lung Cancer, Hx Ovarian Cancer GI Medical History: Reports: Hx Gastroesophageal Reflux Disease. Denies: Hx Crohn's Disease, Hx Hiatal Hernia, Hx Irritable Bowel, Hx Liver Failure, Hx Pancreatitis, Hx Ulcer Musculoskeletal Medical History: Denies Hx Arthritis, Denies Hx Fibromyalgia, Denies Hx Muscular Dystrophy Psychiatric Medical History: Reports: Hx Depression Denies: Hx Bipolar Disorder, Hx Post Traumatic Stress Disorder, Hx Schizophrenia Traumatic Medical History: Denies: Hx Fractures Infectious Medical History: Denies: Hx HIV Past Surgical History: Reports: Hx Abdominal Surgery, Hx Appendectomy, Hx Bowel Surgery, Hx Hysterectomy, Hx Orthopedic Surgery, Hx Tonsillectomy, Other - Laparotomy with resection of the small intestine. Denies: Hx Section, Hx Cholecystectomy, Hx Colostomy, Hx Coronary Artery Bypass Graft, Hx Gastric Bypass Surgery, Hx Herniorrhaphy, Hx Mastectomy, Hx Pacemaker, Hx Tubal Ligation - Immunizations Hx Diphtheria, Pertussis, Tetanus Vaccination: Yes Review of Systems - Review of Systems Constitutional: denies: Chills, Fever EENT: No symptoms reported Cardiovascular: denies: Chest pain, Palpitations, Heart racing Respiratory: denies: Cough, Short of breath, Wheezing Gastrointestinal: No symptoms reported Genitourinary: No symptoms reported Female Genitourinary: No symptoms reported Musculoskeletal: See HPI Skin: No symptoms reported. denies: Change in color, Rash Hematologic/Lymphatic: No symptoms reported Neurological/Psychological: No symptoms reported Physical Exam - Vital signs Vitals: Temp Pulse Resp BP Pulse Ox 98.1 F 63 18 173/80 H 100 12/14/18 19:26 12/14/18 19:26 12/14/18 19:26 12/14/18 19:26 12/14/18 19:26 Notes: Physical exam: GENERAL: Patient is alert and oriented x3, no acute distress HEAD: Atraumatic, normocephalic. EYES: Pupils equal round and reactive to light, extraocular movements intact, sclera anicteric, conjunctiva are normal. ENT: TMs normal, nares patent, oropharynx clear without exudates. Moist mucous membranes. NECK: Normal range of motion, supple without obvious mass or JVD. LUNGS: Breath sounds clear to auscultation bilaterally and equal. No wheezes rales or rhonchi. HEART: Regular rate and rhythm without murmurs, rubs or gallops. ABDOMEN: Soft, normoactive bowel sounds. No tenderness to palpation. No guarding, no rebound. No masses appreciated. EXTREMITIES: She does have tenderness in the right calf. She has no swelling or tenderness over the foot or ankle. Distal cap refill is good. Distal dorsal pedal pulses good. NEUROLOGICAL: Cranial nerves II through XII grossly intact. Normal speech, moving all extremities. PSYCH: Normal mood, normal affect. SKIN: Warm, Dry, normal turgor, no rashes or lesions noted. Course - Re-evaluation Re-evalutation: 12/15/18 03:21 Doppler study shows no evidence of blood clots. I did give the patient some ibuprofen. She is requesting something stronger for pain. I did offer her oxycodone but she says she cannot tolerate that. She is requesting morphine because she is had that in the past. I will give her a small amount of morphine IR and she will follow-up with her primary care doctor. - Vital Signs Vital signs: Temp Pulse Resp BP Pulse Ox 98.0 F 69 16 130/56 H 100 12/15/18 00:46 12/15/18 00:46 12/15/18 00:46 12/15/18 00:46 12/15/18 00:46 - Laboratory Result Diagrams: 12/14/18 22:00 12/14/18 22:00 Laboratory results interpreted by me: 12/14/18 12/14/18 22:00 22:00 RBC 3.62 L Hgb 10.3 L Hct 31.3 L RDW 14.3 H Carbon Dioxide 19 L Est GFR (Non-Af Amer) 53 L AST 67 H Total Protein 8.3 H Discharge - Discharge Clinical Impression: Right calf pain Condition: Stable Disposition: HOME, SELF-CARE Additional Instructions: As we discussed, the ultrasound of the leg showed no evidence of blood clot. I would take ibuprofen (Motrin) for the next few days Take the morphine IR for pain unrelieved by the Motrin. Can try ice packs to the calf and keep it elevated. I do want you to follow-up with Dr. Herrera on Tuesday. If you have persistent calf pain, Dr. Herrera can order an outpatient repeat ultrasound of the leg. Return to the ER for any chest pain or shortness of breath. The pain medicine you're taking prescribed as a narcotic. There are several important things you should know about this medicine: 1. Taking narcotics for too long can lead to physical and mental dependence. Take this medicine only if really needed and in the lowest quantity to achieve pain relief. 2. Do not drink alcohol while on this medicine. Alcohol interacts with narcotics and the combination can be dangerous. 3. Do not drive or operate machinery while on this medicine. 4. Narcotics do cause constipation, so drink plenty of fluids and daily stool softeners. Prescriptions: Morphine Sulfate [Morphine Ir 15 Mg Tablet] 15 mg PO Q8HP PRN #10 tablet PRN Reason: Referrals: TERRI HERRERA MD [Primary Care Provider] - 12/18/18
[2018-12-14 22:28] LABS: ALANINE AMINOTRANSFERASE 51 U/L (9-52); ALBUMIN 4.6 g/dL (3.5-5.0); ALKALINE PHOSPHATASE 92 U/L (38-126); ANION GAP 13 (5-19); ASPARTATE AMINO TRANSFERASE 67 U/L (14-36); BILIRUBIN,DIRECT 0.1 mg/dL (0.0-0.4); BILIRUBIN,TOTAL 0.2 mg/dL (0.2-1.3); BLOOD UREA NITROGEN 19 mg/dL (7-20); CALCIUM 9.8 mg/dL (8.4-10.2); CARBON DIOXIDE 19 mmol/L (22-30); CHLORIDE 106 mmol/L (98-107); GLUCOSE 90 mg/dL (75-110); POTASSIUM 4.6 mmol/L (3.6-5.0); SODIUM 138.2 mmol/L (137-145); TOTAL PROTEIN 8.3 g/dL (6.3-8.2)
[2018-12-15 00:56] VITALS: BP 130/56
--- NOTE | 2018-12-15 08:25 | RADIOLOGY REPORT (SQ) ---
EXAM DESCRIPTION: VENOUS UNILATERAL LOWER COMPLETED DATE/TIME: 12/14/2018 10:42 pm REASON FOR STUDY: rle swelling COMPARISON: None. TECHNIQUE: Dynamic and static waters scale and color images acquired of the right leg venous system. S elected spectral images acquired with additional compression and augmentation maneuvers. The contrala teral common femoral vein and saphenofemoral junction were also imaged. Images stored on PACS. LIMITATIONS: None. FINDINGS: COMMON FEMORAL: Normal phasicity, compression and augmentation. No visualized echogenic ma terial on waters scale. No defects on color images. FEMORAL: Normal compression and augmentation. No visualized echogenic material on waters scale. No defe cts on color images. POPLITEAL: Normal compression, augmentation. No visualized echogenic material on waters scale. No defec ts on color images. CALF VESSELS: Normal compression, augmentation. No visualized echogenic material on waters scale. No de fects on color images. GSV and SSV: Normal compression, augmentation. No visualized echogenic material on waters scale. No def ects on color images. ANY DEEP VENOUS INSUFFICIENCY: Not evaluated. ANY EVIDENCE OF POPLITEAL CYST: No. OTHER: No other significant finding. CONTRALATERAL COMMON FEMORAL VEIN AND SAPHENOFEMORAL JUNCTION: Normal phasicity, compression and augmentation. No visualized echogenic material on waters scale. No de fects on color images. IMPRESSION: Negative examination for deep venous thrombosis in the right lower extremity. TECHNICAL DOCUMENTATION: JOB ID: [id number] [employer]- All Rights Reserved Reading location - IP/workstation name: [email or web address]
== END 2018-12-15 00:56 | disposition home or self-care (01) ==
LOC: ER 18:34
DX: M79.604 Pain in right leg (principal); M79.89 Other specified soft tissue disorders; E11.9 Type 2 diabetes mellitus without complications; I10 Essential (primary) hypertension
CPT/HCPCS: 99284; 36415; 85025; 80053; 93971; A9270

== ENCOUNTER → 2018-12-27 | Outpatient (CLI) | payer MEDICARE, OTHER ==
--- NOTE | 2018-12-27 15:44 | RADIOLOGY REPORT (SQ) ---
EXAM DESCRIPTION: VENOUS UNILATERAL LOWER COMPLETED DATE/TIME: 12/27/2018 3:36 pm REASON FOR STUDY: LLE SWELLING R22.42 LOCALIZED SWELLING, MASS AND LUMP, LEFT LOWER LIMB COMPARISON: None. TECHNIQUE: Dynamic and static waters scale and color images acquired of the left leg venous system. Se lected spectral images acquired with additional compression and augmentation maneuvers. The contralat eral common femoral vein and saphenofemoral junction were also imaged. Images stored on PACS. LIMITATIONS: None. FINDINGS: COMMON FEMORAL: Normal phasicity, compression and augmentation. No visualized echogenic ma terial on waters scale. No defects on color images. FEMORAL: Normal compression and augmentation. No visualized echogenic material on waters scale. No defe cts on color images. POPLITEAL: Normal compression, augmentation. No visualized echogenic material on waters scale. No defec ts on color images. CALF VESSELS: Normal compression, augmentation. No visualized echogenic material on waters scale. No de fects on color images. GSV and SSV: Normal compression, augmentation. No visualized echogenic material on waters scale. No def ects on color images. ANY DEEP VENOUS INSUFFICIENCY: Not evaluated. ANY EVIDENCE OF POPLITEAL CYST: No. OTHER: No other significant finding. CONTRALATERAL COMMON FEMORAL VEIN AND SAPHENOFEMORAL JUNCTION: Normal phasicity, compression and augmentation. No visualized echogenic material on waters scale. No de fects on color images. IMPRESSION: NO EVIDENCE DVT OR SVT IN THE LEFT LEG. TECHNICAL DOCUMENTATION: JOB ID: [id number] [employer]- All Rights Reserved Reading location - IP/workstation name: [email or web address]
== END ==
LOC: SP 14:06
PROVIDERS: ATTEND Internal Medicine
DX: R22.42 Localized swelling, mass and lump, left lower limb (principal)
CPT/HCPCS: 93971

== ENCOUNTER → 2019-01-08 | Outpatient (CLI) | payer MEDICARE, OTHER ==
--- NOTE | 2019-01-08 13:24 | RADIOLOGY REPORT (SQ) ---
EXAM DESCRIPTION: CHEST 2 VIEWS COMPLETED DATE/TIME: 01/08/2019 1:03 pm REASON FOR STUDY: ERYTHEMA NODOSUM COMPARISON: 08/03/2017 EXAM PARAMETERS: NUMBER OF VIEWS: two views TECHNIQUE: Digital Frontal and Lateral radiographic views of the chest acquired. RADIATION DOSE: NA LIMITATIONS: none FINDINGS: LUNGS AND PLEURA: No opacities, masses or pneumothorax. No pleural effusion. MEDIASTINUM AND HILAR STRUCTURES: No masses or contour abnormalities. HEART AND VASCULAR STRUCTURES: Stable in appearance. Mild cardiomegaly. No evidence for failure. BONES: No acute findings. HARDWARE: None in the chest. OTHER: No other significant finding. IMPRESSION: 1. No significant interval changes since the prior study dated 08/03/2017. No acute fin dings. 2. Mild cardiomegaly, unchanged finding. TECHNICAL DOCUMENTATION: JOB ID: [id number] [employer]- All Rights Reserved Reading location - IP/workstation name: [email or web address]
== END ==
LOC: RAD 12:50
PROVIDERS: ATTEND Internal Medicine
DX: L52 Erythema nodosum (principal); I51.7 Cardiomegaly
CPT/HCPCS: 71046

== ENCOUNTER → 2019-03-26 | Outpatient (CLI) | payer MEDICARE, OTHER ==
--- NOTE | 2019-03-26 14:25 | RADIOLOGY REPORT (SQ) ---
EXAM DESCRIPTION: C SP 3 VWS OR LESS COMPLETED DATE/TIME: 03/26/2019 1:11 pm REASON FOR STUDY: POLYARTHRITIS, UNSPECIFIED M13.0 POLYARTHRITIS, UNSPECIFIED COMPARISON: None. NUMBER OF VIEWS: Two views. TECHNIQUE: AP and lateral radiographic images acquired of the cervical spine. LIMITATIONS: None. FINDINGS: Alignment is anatomic. There is disc space narrowing and osteophyte formation C4- 5 throu gh C7-T1. Prevertebral soft tissues are normal. IMPRESSION: Cervical disc disease. TECHNICAL DOCUMENTATION: JOB ID: [id number] [employer]- All Rights Reserved Reading location - IP/workstation name: [email or web address]
--- NOTE | 2019-03-26 15:30 | RADIOLOGY REPORT (SQ) ---
EXAM DESCRIPTION: SHOULDER BILAT 2 OR MORE VIEWS COMPLETED DATE/TIME: 03/26/2019 1:11 pm REASON FOR STUDY: POLYARTHRITIS, UNSPECIFIED M13.0 POLYARTHRITIS, UNSPECIFIED COMPARISON: None. NUMBER OF VIEWS: Six views. TECHNIQUE: Internal rotation, external rotation, and Y view images acquired of the right and left sh oulder. LIMITATIONS: None. FINDINGS: Mild AC and glenohumeral joint arthropathy bilaterally. No evidence of fracture dislocati on. Visualize lungs are clear. IMPRESSION: AC and glenohumeral joint arthropathy. TECHNICAL DOCUMENTATION: JOB ID: [id number] [employer]- All Rights Reserved Reading location - IP/workstation name: [email or web address]
--- NOTE | 2019-03-26 16:06 | RADIOLOGY REPORT (SQ) ---
EXAM DESCRIPTION: HAND BILATERAL 2 VIEWS COMPLETED DATE/TIME: 03/26/2019 1:11 pm REASON FOR STUDY: POLYARTHRITIS, UNSPECIFIED M13.0 POLYARTHRITIS, UNSPECIFIED COMPARISON: None. EXAM PARAMETERS: NUMBER OF VIEWS: Two views right hand. Two views left hand. TECHNIQUE: AP and lateral radiographic images acquired of bilateral hands. LIMITATIONS: None. FINDINGS: There is joint space narrowing and osteophyte formation in multiple interphalangeal joints bilaterally, and at the base of the right 1st metacarpal. No erosions are identified. No soft tiss ue calcifications. IMPRESSION: Osteoarthritis. TECHNICAL DOCUMENTATION: JOB ID: [id number] [employer]- All Rights Reserved Reading location - IP/workstation name: [email or web address]
== END ==
LOC: OD 12:47
PROVIDERS: ATTEND Internal Medicine
DX: M13.0 Polyarthritis, unspecified (principal)
CPT/HCPCS: 72040

== ENCOUNTER → 2019-10-05 | Outpatient (CLI) | payer MEDICARE, OTHER ==
--- NOTE | 2019-10-05 10:47 | WOMENS IMAGING REPORT ---
EXAM DESCRIPTION: 3D SCREENING MAMMO BILAT COMPLETED DATE/TIME: 10/05/2019 9:17 am REASON FOR STUDY: Z12.31 ENCOUNTER FOR SCREENING MAMMOGRAM FOR MALIGNANT NEOPLASM OF BREAST Z12.31 ENCNTR SCREEN MAMMOGRAM FOR MALIGNANT NEOPLASM OF MIRIAM COMPARISON: 2016 EXAM PARAMETERS: Views: Standard craniocaudal and mediolateral oblique views of each breast recorded using digital acquisition and breast tomosynthesis. Read with the assistance of CAD. .[facility] - [employer] Version 9.2 LIMITATIONS: None. FINDINGS: No suspicious masses, suspicious calcifications or architectural distortion. No areas of c oncern. IMPRESSION: NEGATIVE MAMMOGRAM. BIRADS 1. BREAST DENSITY: b. There are scattered areas of fibroglandular density. BIRAD: ASSESSMENT: 1 NEGATIVE RECOMMENDATION: ROUTINE SCREENING COMMENT: The patient has been notified of the results by letter per MQSA requirements. Additional no tification policies are in place for contacting patient with suspicious or incomplete findings. Quality ID #[id number]: [employer] recommends an annual screening mammogram for women aged 40 years or over. This facility utilizes a reminder system to ensure that all patients receive reminder letters, and/or direct phone calls for appointments. This includes reminders for routine scr eening mammograms, diagnostic mammograms, or other Breast Imaging Interventions when appropriate. Th is patient will be placed in the appropriate reminder system. TECHNICAL DOCUMENTATION: FINDING NUMBER: (1) ASSESSMENT: (1) JOB ID: [id number] [employer]- All Rights Reserved Reading location - IP/workstation name: [email or web address]
== END ==
LOC: WI 08:58
PROVIDERS: ATTEND Obstetrics & Gynecology Gynecology
DX: Z12.31 Encounter for screening mammogram for malignant neoplasm of breast (principal)
CPT/HCPCS: 77063; 77067

== ENCOUNTER → 2019-11-02 | Outpatient (CLI) | payer MEDICARE, OTHER ==
--- NOTE | 2019-11-02 14:58 | RADIOLOGY REPORT (SQ) ---
EXAM DESCRIPTION: HIP LEFT AP/LATERAL COMPLETED DATE/TIME: 11/02/2019 2:25 pm REASON FOR STUDY: UNILATERAL PRIMARY OSTEOARTHRITIS, LEFT HIP M16.12 UNILATERAL PRIMARY OSTEOARTHRI TIS, LEFT HIP COMPARISON: None. NUMBER OF VIEWS: Two views. TECHNIQUE: AP pelvis and additional frog-leg view of the left hip. LIMITATIONS: None. FINDINGS: MINERALIZATION: Decreased. LEFT HIP: No fracture or dislocation. No worrisome bone lesions. Minimal joint space loss. RIGHT HIP: No fracture or dislocation. No worrisome bone lesions. Minimal joint space loss. PUBIS AND ISCHIUM: No fracture. SACRUM: No fracture or dislocation. No worrisome bone lesions. LOWER LUMBAR SPINE: No fracture or dislocation. No worrisome bone lesions. No significant disc disea se. SOFT TISSUES: No findings. OTHER: No other significant finding. IMPRESSION: Minimal degenerative change without evidence of acute bony abnormality. TECHNICAL DOCUMENTATION: JOB ID: [id number] [employer]- All Rights Reserved Reading location - IP/workstation name: [email or web address]
== END ==
LOC: OD 14:04
PROVIDERS: ATTEND Internal Medicine
DX: M16.12 Unilateral primary osteoarthritis, left hip (principal)

== ENCOUNTER → 2020-02-22 | Outpatient (CLI) | payer MEDICARE, OTHER ==
--- NOTE | 2020-02-22 11:29 | RADIOLOGY REPORT (SQ) ---
EXAM DESCRIPTION: HAND BILATERAL 2 VIEWS IMAGES COMPLETED DATE/TIME: 02/22/2020 11:17 am REASON FOR STUDY: POLYARTHRITIS, UNSPECIFIED M13.0 POLYARTHRITIS, UNSPECIFIED COMPARISON: 03/26/2019. EXAM PARAMETERS: NUMBER OF VIEWS: Two views right hand. Two views left hand. TECHNIQUE: AP and lateral radiographic images acquired of bilateral hands. LIMITATIONS: None. FINDINGS: RIGHT HAND: MINERALIZATION: Osteopenia. BONES: No acute fracture or dislocation. JOINTS: Osteoarthrosis of the 1st CMC, 1st MCP and of several IP joints. There is no periarticular o steopenia, erosion or chondrocalcinosis. SOFT TISSUES: No soft tissue swelling. OTHER: No other finding. LEFT HAND: MINERALIZATION: Osteopenia. BONES: No acute fracture or dislocation. JOINTS: Osteoarthrosis of the 1st CMC and of several IP joints. There is no periarticular osteopenia , erosion or chondrocalcinosis. SOFT TISSUES: No soft tissue swelling. OTHER: No other finding. IMPRESSION: Osteoarthrosis without a superimposed acute osseous abnormality of the hands. TECHNICAL DOCUMENTATION: JOB ID: [id number] 2010 [employer]- All Rights Reserved Reading location - IP/workstation name: [email or web address]
== END ==
LOC: OD 11:08
PROVIDERS: ATTEND Internal Medicine
DX: M19.042 Primary osteoarthritis, left hand (principal); M19.041 Primary osteoarthritis, right hand

== ENCOUNTER 2020-07-02 09:51 | Outpatient (CLI) | payer MEDICARE, OTHER ==
[2020-07-02] MEDS ORDERED: FERRIC CARBOXYMALTOSE 750 MG in NORMAL SALINE 250 ML IV PRN (09:59)
[2020-07-02 10:23] VITALS: BP 115/66
== END 2020-07-02 11:19 | disposition home or self-care (01) ==
LOC: II 09:51 → 5TH 10:07 → II 11:19
PROVIDERS: ATTEND Internal Medicine
DX: D50.9 Iron deficiency anemia, unspecified (principal)
CPT/HCPCS: 96374; J7050; J1439

== ENCOUNTER 2020-07-09 10:16 | Outpatient (CLI) | payer MEDICARE, OTHER ==
[~2020-07-09 10:16] MED LIST changes: -EPINEPHRINE INJ 1 MG/10 ML DISP.SYRIN ONE; +FERRIC CARBOXYMALTOSE 750 MG in NORMAL SALINE 250 ML IV PRN; -FLUMAZENIL INJ 0.5 MG/5 ML VIAL ONE; -GLUCAGON,HUMAN RECOMB 1 MG INJ ONE; -NALOXONE HCL INJ/PF 0.4 MG/1 ML SDV ONE
[2020-07-09 10:32] VITALS: BP 114/66
== END 2020-07-09 11:28 | disposition home or self-care (01) ==
LOC: II 10:16 → 5TH 10:18 → II 11:28
PROVIDERS: ATTEND Internal Medicine
DX: D50.9 Iron deficiency anemia, unspecified (principal)
CPT/HCPCS: 96374; J7050; J1439